=== PATIENT | female | born 1970 | race Caucasian/White ===

== ENCOUNTER 2016-09-06 14:42 | Emergency (ER) | payer BC ==
[~2016-09-06] VITALS: Ht 152.4 cm; Wt 69.0 kg
[~2016-09-06 14:42] MED LIST: ESCI10TA17 PO; OXYC-57 PO
[2016-09-06 14:44] VITALS: TEMP 36.7; Ht 152.4 cm; Wt 69.0 kg
[2016-09-06] MEDS ORDERED: MONT1TAB3 PO (15:09)
[2016-09-06] MEDS ORDERED: BUPR-83 PO (15:09)
[2016-09-06] MEDS ORDERED: MULT-506 PO (15:09)
[2016-09-06] MEDS ORDERED: ALBUAER (15:10)
[2016-09-06] MEDS ORDERED: ADVIN25/60 INH (15:10)
[2016-09-06] MEDS ORDERED: ONDANSETRON INJ 2 MG/ML 2 ML VIAL IV STA (15:43)
[2016-09-06] MEDS ORDERED: MoRPHine SULFATE 10 MG/ML CARP/VIAL IV STA (15:43)
[2016-09-06] MEDS ORDERED: SODIUM CHLORIDE 0.9% 1000ML 1,000 ML IV STA (15:43)
[2016-09-06 15:52] LABS: BASO % 0.3 %; BASO ABS # 0.03 K/uL (0-0.2); COMPLETE YES; EOS % 0.5 %; HEMATOCRIT 40.9 % (37-47); IG% 0.1 %; LYMPH % 25.6 %; LYMPH ABS # 2.84 K/uL (1.2-3.4); MEAN CORPUSCULAR HEMOGLOBIN 33.6 pg (25-34); MEAN CORPUSCULAR HGB CONC 36.2 g/dl (32-36); MONO % 7.5 %; PLATELET COUNT 245 K/uL (130-400)
[2016-09-06 15:59] LABS: BUN/CREATININE RATIO 14.3 (10-20); CALCIUM 8.7 mg/dl (8.5-10.1); CREATININE 0.75 mg/dl (0.60-1.20); POTASSIUM 3.6 mmol/L (3.5-5.1)
[2016-09-06] MEDS ORDERED: OPTIRAY 320 IV PRN (16:00)
[2016-09-06 16:13] LABS: URINE APPEARANCE CLEAR (CLEAR); URINE BILIRUBIN NEG (NEG); URINE COLOR YELLOW; URINE EPITHELIAL CELL AUTO >30 /lpf (0-5); URINE NITRITE NEG (NEG); URINE PH 7.5 (4.5-7.5); URINE SPECIFIC GRAVITY 1.024 (1.000-1.030); UROBILINOGEN NEG (NEG)
[2016-09-06 16:33] LABS: REVIEW REQ? YES
[2016-09-06 16:34] LABS: MANUAL MICROSCOPIC REQUIRED? NO
--- NOTE | 2016-09-06 16:45 | DIAGNOSTIC IMAGING REPORT ---
ABDOMINAL ULTRASOUND, RIGHT LOWER QUADRANT HISTORY: Pain ABDOMINAL PAIN. COMPARISON: None. FINDINGS: Nonvisualization of the appendix IMPRESSION: Nonvisualization of the appendix Electronically signed by: Elliot Guidry M.D. 09/06/2016 4:44 PM Dictated Date/Time: 09/06/2016 4:43 PM
[2016-09-06] MEDS ORDERED: MoRPHine SULFATE 4 MG/ML 1 ML CARP\\VIAL IV STA (18:17)
--- NOTE | 2016-09-06 18:24 | DIAGNOSTIC IMAGING REPORT ---
CT OF THE ABDOMEN AND PELVIS WITH CONTRAST CLINICAL HISTORY: Abdominal pain. Evaluate for acute appendicitis. COMPARISON STUDY: CT of the abdomen and pelvis March 06, 2010 and right lower quadrant ultrasound performed earlier today. TECHNIQUE: Following IV administration of 94 mL of Optiray-320, axial images of the abdomen and pelvis were obtained from the lung bases to the proximal femurs. Images were reviewed in the axial, sagittal, and coronal planes. IV contrast was administered without complication. Oral contrast was administered. CT DOSE: 313.24 mGy.cm FINDINGS: The liver, spleen, adrenal glands, kidneys and pancreas are normal. There is no peripancreatic or pericholecystic infiltration. There is no biliary or pancreatic ductal dilatation. There is no evidence for a bowel obstruction. There is colonic diverticulosis. There is wall thickening of the proximal sigmoid colon with mild associated inflammation. There is no free air or abscess. The appendix is normal. IMPRESSION: 1. Acute sigmoid diverticulitis. No free air or abscess. 2. Normal appendix. 3. Small amount of fluid within the pelvis. Electronically signed by: Darrell Matta M.D. 09/06/2016 6:22 PM Dictated Date/Time: 09/06/2016 6:18 PM
[2016-09-06 18:30] VITALS: BP 144/89; PULSE 72; O2SAT 97
[2016-09-06] MEDS ORDERED: HYDR-5688 PO (18:43)
[2016-09-06] MEDS ORDERED: CPR/500 PO (18:43)
[2016-09-06] MEDS ORDERED: METR-163 PO (18:43)
--- NOTE | 2016-09-07 22:46 | EMERGENCY ROOM VISIT NOTE ---
ED Visit Note First contact with patient: 14:47 Chief Complaint: Abdominal pain. History of Present Illness: Ms. Akhtar is a 46 year-old white female who ambulates into the ED complaining of right lower quadrant abdominal pain. Historically patient reports no gastrointestinal disorders and no previous abdominal surgeries. But does report she had a uterine ablation done in 2008. Patient reports last evening a proximally 14 hours before she arrived in the emergency department she was having moderate to severe diffuse abdominal pain. This continued throughout the evening and into the treer hours and then slowly decreasing in intensity. She then elected to try to have something to eat and her pain restarted and became severe. She went to a local urgent care center and was found to have right lower quadrant abdominal pain and was sent to the ED for further evaluation and care. Currently she describes her pain as a sharp sensation. Her pain is nonradiating. She rates her discomfort 7/10. Her pain worsens with palpation of the right lower quadrant. She has not identified any alleviating factors related to the pain. She has not taken any medications for pain prior to arrival at the hospital. Associated with her pain she's been nauseated but has not vomited. Patient denies fevers, chills, sweats, skin eruptions, skin color changes, upper respiratory tract symptoms, shortness of breath, chest pain, nausea, vomiting, diarrhea, constipation, rectal bleeding, black/tarry stools, urinary symptoms, hematuria, vaginal bleeding, vaginal discharge, back/flank pain. Review of Systems: As noted above in history of present illness. All body systems were reviewed and found to be negative as noted above. Past Medical History: Asthma, bronchitis, pneumonia, unspecified urinary problems. Current Medications: Wellbutrin, Singulair, albuterol, Advair and multivitamins. Allergies to Medications: Patient denies. Social History: Patient is currently employed; she feel safe in her home environment; she denies tobacco and admits to alcohol use. Physical Examination: Vital Signs: Date Time Temp Pulse Resp B/P Pulse Ox O2 Delivery O2 Flow Rate FiO2 09/06/16 18:30 72 144/89 97 09/06/16 18:00 159/90 09/06/16 17:44 71 16 97 09/06/16 17:39 139/90 09/06/16 17:35 70 98 4/5/17 17:05 72 20 97 09/06/16 17:00 152/97 09/06/16 16:00 76 166/96 96 09/06/16 15:59 68 09/06/16 15:56 144/94 09/06/16 14:44 36.7 79 18 153/99 96 Room Air GENERAL: 46-year-old female in mild to moderate distress due to pain, nontoxic- appearing, afebrile and hemodynamically stable. NEUROLOGICAL: Awake, alert and oriented to person, place and time. Answering questions appropriately and following commands. Normal gait. Good hand eye coordination. SKIN: Warm, dry and pink. No soft tissue eruptions or trauma noted. HEENT: Atraumatic and normocephalic. PERRLA. Sclera white and conjunctiva pink. Oral cavity moist and pink. Pharynx is nonerythematous or edematous. Speech normal. No lymphadenopathy. Trachea midline. No jugular venous distention. BACK: No tenderness over the bony spine. No CVA tenderness. THORAX: Lungs sounds are clear to auscultation and equal bilaterally with symmetrical chest wall. No wheezing, rales or rhonchi. No crepitus, tenderness , subcutaneous air or deformities noted. HEART: Regular rate and rhythm. No gallops, rubs or murmurs are appreciated. ABDOMEN: Flat and soft with mild tenderness in left lower quadrant referring pain to the right side of the abdomen and moderate tenderness just inferior to McBurney's point. Positive bowel sounds in all quadrants. No guarding, rigidity or organomegaly. EXTREMITIES: Moves all extremities well on command and with purpose. All distal neurovascular statuses are intact and equal bilaterally. ED Course: Patient is assessed as noted above. Laboratory Testing: Test 09/06/16 15:15 Range/Units White Blood Count 11.10 4.8-10.8 K/uL Red Blood Count 4.40 4.2-5.4 M/uL Hemoglobin 14.8 12.0-16.0 g/dL Hematocrit 40.9 37-47 % Mean Corpuscular Volume 93.0 80-100 fL Mean Corpuscular Hemoglobin 33.6 25-34 pg Mean Corpuscular Hemoglobin Concent 36.2 32-36 g/dl Platelet Count 245 130-400 K/uL Mean Platelet Volume 9.0 7.4-10.4 fL Neutrophils (%) (Auto) 66.0 % Lymphocytes (%) (Auto) 25.6 % Monocytes (%) (Auto) 7.5 % Eosinophils (%) (Auto) 0.5 % Basophils (%) (Auto) 0.3 % Neutrophils # (Auto) 7.33 1.4-6.5 K/uL Lymphocytes # (Auto) 2.84 1.2-3.4 K/uL Monocytes # (Auto) 0.83 0.11-0.59 K/uL Eosinophils # (Auto) 0.06 0-0.5 K/uL Basophils # (Auto) 0.03 0-0.2 K/uL RDW Standard Deviation 42.9 36.4-46.3 fL RDW Coefficient of Variation 12.6 11.5-14.5 % Immature Granulocyte % (Auto) 0.1 % Immature Granulocyte # (Auto) 0.01 0.00-0.02 K/uL Urine Color YELLOW Urine Appearance CLEAR CLEAR Urine pH 7.5 4.5-7.5 Urine Specific [place] 1.024 1.000-1.030 Urine Protein NEG NEG Urine Glucose (UA) NEG NEG Urine Ketones NEG NEG Urine Occult Blood TRACE NEG Urine Nitrite NEG NEG Urine Bilirubin NEG NEG Urine Urobilinogen NEG NEG Urine Leukocyte Esterase NEG NEG Urine WBC (Auto) 1-5 0-5 /hpf Urine RBC (Auto) 0-4 0-4 /hpf Urine Hyaline Casts (Auto) 1-5 0-5 /lpf Urine Epithelial Cells (Auto) >30 0-5 /lpf Urine Bacteria (Auto) 1+ NEG Urine Renal Epithelial Cells 0-5 /lpf Sodium Level 142 136-145 mmol/L Potassium Level 3.6 3.5-5.1 mmol/L Chloride Level 107 98-107 mmol/L Carbon Dioxide Level 29 21-32 mmol/L Anion Gap 6.0 3-11 mmol/L Blood Urea Nitrogen 11 7-18 mg/dl Creatinine 0.75 0.60-1.20 mg/dl Est Creatinine Clear Calc Drug Dose 80.4 ml/min Estimated GFR () 110.0 Estimated GFR (Non- 94.9 BUN/Creatinine Ratio 14.3 10-20 Random Glucose 80 70-99 mg/dl Calcium Level 8.7 8.5-10.1 mg/dl Total Bilirubin 0.5 0.2-1 mg/dl Direct Bilirubin 0.1 0-0.2 mg/dl Aspartate Amino Transf (AST/SGOT) 18 15-37 U/L Alanine Aminotransferase (ALT/SGPT) 29 12-78 U/L Alkaline Phosphatase 58 45-117 U/L Total Protein 7.1 6.4-8.2 gm/dl Albumin 3.7 3.4-5.0 gm/dl Lipase 120 73-393 U/L Right Lower Quadrant Ultrasound: Was reviewed by myself and read by the radiologist showing a nonvisualized appendix. Contrast Abdominal/Pelvic CT: Was reviewed by myself and read by the radiologist and shows acute sigmoid diverticulitis without free air or abscess. Normal. Appendix. Small amount of fluid in the pelvis. Patient was hydrated with normal saline and she received a total of 10 mg of morphine IV for pain and 4 mg of Zofran IV for nausea. Patient was reassessed multiple times during her stay in the emergency department. Patient's case was reviewed with Dr. Alford; we agreed on diagnostic approach, treatment, disposition and plan. Patient was educated about kobeight's findings and instructed on her treatment plan; she verbalizes understanding and agreement with this plan. Clinical Impression: Acute diverticulitis. Decision-Making: Initially my differential diagnosis I considered acute appendicitis, acute diverticulitis, bowel obstruction, perforated viscus, pancreatitis, hepatitis, constipation and other causes. Disposition: Patient discharged home in stable condition accompanied by female friends; prior to departure she was reassessed and subjectively reported she was feeling better and rated her discomfort 3/10. Plan: Patient was placed on a sliding pain scale of ibuprofen, acetaminophen and [place] ; appropriate precautions were discussed with the patient concerning narcotic use. Patient was prescribed 500 mg of ciprofloxacin 2 times a day and 500 mg of Flagyl 3 times a day for 10 days. Patient was encouraged to call her family physician tomorrow morning and inform them of today's ED visit and request follow-up care and treatment and eventually referral to gastroenterology. Patient was encouraged return the ED for uncontrolled pain, fevers, bloody stools or any new/concerning symptoms.
== END 2016-09-06 18:53 | disposition home or self-care (01) ==
LOC: C.EDB 14:43 → C.EDA 18:53
DX: K57.32 Diverticulitis of large intestine without perforation or abscess without bleeding (principal); J45.909 Unspecified asthma, uncomplicated; Z87.01 Personal history of pneumonia (recurrent); Z98.890 Other specified postprocedural states

== ENCOUNTER → 2017-03-23 | Outpatient (CLI) | payer BC ==
[~2017-03-23] MED LIST changes: +ADVIN25/60 INH; +ALBUAER; +BUPR-83 PO; +CPR/500 PO; -ESCI10TA17 PO; +MONT1TAB3 PO; +MULT-506 PO; -OXYC-57 PO
--- NOTE | 2017-03-23 15:52 | MAMMOGRAPHY REPORT ---
BILATERAL DIGITAL SCREENING MAMMOGRAM TOMOSYNTHESIS WITH CAD: 03/23/2017 CLINICAL HISTORY: Routine screening. Patient has no complaints. TECHNIQUE: Breast tomosynthesis in addition to standard 2D mammography was performed. Current study was also evaluated with a Computer Aided Detection (CAD) system. COMPARISON: Comparison is made to exams dated: 03/17/2016 mammogram, 10/07/2015 mammogram, 03/15/2015 mammogram, 01/23/2014 mammogram, 01/21/2013 mammogram, and 07/18/2012 ultrasound - [facility]. BREAST COMPOSITION: The tissue of both breasts is heterogeneously dense, which may obscure small mas ses. FINDINGS: No suspicious masses, calcifications, or areas of architectural distortion are noted in ei ther breast. There has been no significant interval change compared to prior exams. A biopsy marker clip is again noted in the right breast. Bilateral benign-appearing calcifications are not significa ntly changed. Bilateral asymmetries are stable. IMPRESSION: ACR BI-RADS CATEGORY 2: BENIGN There is no mammographic evidence of malignancy. A 1 year screening mammogram is recommended. The pa tient will receive written notification of the results. Approximately 10% of breast cancers are not detected with mammography. A negative mammographic report should not delay biopsy if a clinically suggestive mass is present. Muriel Harris M.D. /:03/23/2017 14:39:31 [employer] Work [employer] Installer: Parris Johnston, [facility] letter sent: Normal 1/2 BI-RADS Code: ACR BI-RADS Category 2: Benign
== END | disposition home or self-care (01) ==
LOC: C.MAMM 13:15
PROVIDERS: ATTEND Obstetrics & Gynecology
DX: Z12.31 Encounter for screening mammogram for malignant neoplasm of breast (principal)

== ENCOUNTER → 2017-09-26 | Outpatient (CLI) | payer BC, OTHER | END | disposition home or self-care (01) | LOC: C.RDSM 09:00 | PROVIDERS: ATTEND Podiatrist | DX: M79.671 Pain in right foot (principal) ==

== ENCOUNTER 2019-10-23 07:11 | Inpatient (IN) ==
--- NOTE | 2019-08-29 09:35 | Anesthesiology Consultation ---
Date of Service August 29, 2019 Assessment & Plan (1) Encounter for pre-operative examination: - PCP Clearance 07/2019 = "Umaña score 0.1% complication class I. May proceed with surgery. Low risk." - S/P ACDF C5-C7: 12/10/17: Grade view 1, MAC#3, ETT 7.0 at [facility] - Check test AM DOS - Hx PONV: scope patch ordered for AM DOS - Patient anxious RE: surgery/SAB. Requests heavier sedation if possible. Chart Review Chart Review: Acceptable Risk for Surgery (pending preop labs) and Patient NOT seen in Pre Admission Testing History Surgery Operation Date: 10/23/19 07:15 Proposed Procedures p Left Total Knee Arthroplasty - Santos Sosa MD Height/Weight Height: 5 ft 5 in Weight: 61.235 kg Allergies Allergy/AdvReac Type Severity Reaction Status Date / Time No Known Allergies Allergy Verified 07/23/19 10:56 Medications Home Medications Medication Instructions Recorded Confirmed Last Taken bupropion HCl 300 mg PO QAM 05/07/19 08/29/19 05/07/19 hydrochlorothiazide 25 mg PO QAM 05/07/19 08/29/19 05/07/19 lisinopril 10 mg PO QAM 05/07/19 08/29/19 05/07/19 escitalopram oxalate [Lexapro] 5 mg PO QAM 07/23/19 08/29/19 Unknown ibuprofen 800 mg PO Q6H PRN 07/23/19 08/29/19 Unknown meloxicam 15 mg tablet 15 mg PO DAILY PRN #30 tab 08/19/19 08/29/19 Unknown methylprednisolone 4 mg tablets in 4 mg PO UD #1 pkt 08/19/19 08/29/19 Unknown a dose pack Past Medical History Medical History Anxiety Asthma exercised induced, no issue x years Cervical stenosis of spinal canal prescribed methyprednisolone pack + meloxicam at 08/19/19 ortho visit Depression Diverticular disease Hypertension Osteoarthritis Past Family History Family History Mother Family history of diabetes mellitus Father Family history of diabetes mellitus Grandfather (Maternal) Family history of diabetes mellitus Grandfather (Paternal) Family history of diabetes mellitus Grandmother (Paternal) Family history of diabetes mellitus Grandmother (Maternal) Family history of diabetes mellitus Past Surgical History Surgical History History of arthroscopy LEFT X 2 History of colonoscopy Hx of hand surgery RIGHT TRIGGER FINGER S/P cervical spinal fusion ACDF C5-C7: 12/10/17: Grade view 1, MAC#3, ETT 7.0 at [facility] Social History Smoking Status: Former smoker Do You Dip or Chew Tobacco: No Smoking End Date: 2009 Hx Alcohol Use: Yes Alcohol type: wine alcohol intake frequency: a few times a month Hx Substance Use: No Testing Electrocardiogram Date: 07/30/19 Findings: + NSR @ (60)
--- NOTE | 2019-10-17 14:45 | History & Physical Report ---
Date of Service October 17, 2019 Assessment & Plan (1) Osteoarthritis of left knee: Plan: The patient is scheduled to undergo this procedure with Dr. Santos Sosa at [facility] as an inpatient on October 23, 2019. Risks and complications of the procedure such as infection, bleeding, pain, scar, nerve and blood vessel damage, weakness, wound problems, stiffness, incomplete relief of symptoms, hardware failure, hardware loosening or fracture, tender or ligament injury, blood clots, embolism, heart attack, stroke, and were explained to the patient by Dr. Sosa at her visit today. Informed consent to perform the procedure was obtained. We have already obtained preoperative medical clearance from the patient's primary care provider's office. This was done by MARCI Romo. Due to timing, patient needs and updated CBC with diff, CMP, PT/INR, blood type and screen, urinalysis, urine culture, hemoglobin A1c, and a nasal culture for MRSA. Patient will obtain these labs at [facility] upstairs after her visit today. Her EKG is valid. She patient is scheduled for her 2-week postop followup with myself on November 07, 2019 @ 1:00 in the afternoon. I advised her that I will prescribe her with narcotic pain medication and anti-inflammatory upon discharge from the hospital. She has a walker that she will bring with her on the day of the procedure. She states she will most likely do in-home therapy for 1 week and then transition to outpatient therapy at our PT Clinic. We discussed discharge planning, went over the total knee arthroplasty packet. I provided her with a paperwork to obtain a handicap placard for her vehicle at her initial preop in July that is valid for 4-6 months postoperatively. She states that she has already attended the lectures offered by [facility] in regard to knee replacement surgery. She understands that she will need to use antibiotics for any type of dental procedure after the total knee replacements. I also discussed the high probability that she will need revision in the future due to her age. The patient verbalized understanding of all information provided during today's visit, thanks us for the care she has received, and states if she has questions or concerns that should arise prior to her procedure day, she will contact the clinic accordingly. History of Present Illness Chief Complaint: Left knee pain Primary Care Provider: Elise Lozano PRE-OP Diagnosis: Left knee osteoarthritis Planned Procedure: Left total knee arthroplasty History of Present Illness (including history relevant to procedure): This 49-year-old female presents to the clinic today for her preoperative history and physical examination. Patient was initially scheduled for this procedure in early August but it was canceled due to the COVID-19 pandemic. The patient complains of a longstanding history of left knee pain that developed after her initial knee surgery at age 12. She states that she has had 3 arthroscopic knee surgeries in the past and since this past April has experienced significant knee pain after running a half marathon. The patient states that she has failed conservative treatment with injections, use of nonsteroidal agents, and physical therapy, as well as her 3 previous knee surgeries. The patient elects to proc eed with a total knee arthroplasty because the pain is affecting her activities of daily living. Past Medical History: Problems: Osteoarthritis of left knee Pre-op exam Hypertension Acute sinusitis Rectal bleeding Lower abdominal pain Sebaceous cyst Subconjunctival hemorrhage Acute diverticulitis Skin lesion Weight disorder Bronchospasm, exercise-induced Adjustment disorder with mixed emotional features Abnormal mammogram of right breast Depressive disorder Anxiety state Decreased hearing Body mass index 25-29 - overweight Dyspnea Procedure History Procedure Procedure Date Comments Repair of knee joint - x2 Ablation Uterine Trigger finger Punch biopsy of skin 07/04/2019 Mammogram 04/02/2019 - No mammographic evidence of malignancy Ablation 09/30/2018 - negative for intraepithelial lesion or malignancy. CT of abdomen and pelvis 08/27/2018 - 1. CT findings indicative of acute sigmoid diverticulitis. No evidence of peridiverticular abscess 2. No evidence of bowel obstruction. no evidence of free air.3. 34 mm right adnexal cyst likely ovarian. Screening mammogram of right breast 03/29/2018 - Impression: There is no mammographic evidence of malignancy. A 1 year screening mammogram is recommended. (03/30/2019). The patient will receive written notification of the results. Cervical discectomy anterior bilateral foraminotomies C5-6, C6-7 12/10/2017 Chest x-ray 11/15/2017 - Impression: No acute process. Removed bone spur left shoulder and removed some bursitis 2017 Colonoscopy 10/27/2016 - -Diverticulosis in the sigmoid colon-no specimens collected CT of abdomen and pelvis 09/06/2016 - Acute sigmoid diverticulitis. No free air or abscess.Normal appendixSmall amount of fluid within the pelvis. Ultrasound scan of lower abdomen 09/06/2016 - Nonvisualization of the appendix. Excision 04/25/2016 - right anterior neck Mammogram 03/17/2016 - Cat 2- benign Echocardiogram 11/11/2015 - Normal LV size and systolic function with no regional wall motion abnormalities. Ejection fraction 60%. No left ventricular hypertrophy. Normal LV diastolic function. Normal E/e' ration. A complete report is available with the images in Centricity and is also available in Powerchart. Chest x-ray 11/03/2015 - Negative chest x-ray Mammogram, Right diagnostic 10/07/2015 - Impression: Hypoechoic 6 mm mass in the right breast at 7:00 is stable: this was recent biopsied and yielded benign pathology. Other small benign cysts are seen within the right breast ultrasound. There is no mammographic or targeted sonographic evidence of malignancy. Return to annual mammogram screening schedule is recommended, due March 2016. The patient has been verbally notified of the results. CXR - Chest X-ray 08/03/2015 - Negative chest Mammogram 04/03/2015 - unilat of right breastu/s guided bx Biopsy 04/03/2015 - S/P U/S guided core bx of a sonographically identified solid mass int the 7:00 right breast, with bx marker placement. Mammogram 03/19/2015 - CAT 4B- intermediate suspicion for malignancy, targeted u/s. Mammogram 03/15/2015 - CAT 0- incopmplete PAP test date 09/11/2014 - Negative for intraepithelial lesion or malignancy Mammogram 01/23/2014 Allergies and Sensitivities: NKA FAMILY HISTORY: Positive for heart attack, hypertension, muscular dystrophy, and type 2 diabetes. SOCIAL HISTORY: The patient consumes 1 alcoholic beverage per week and states she quit smoking cigarettes 10 years ago. She denies any illicit drug use. Current Home Meds: (Last Updated 10/16 13:16) (buPROPion 300 mg/24 hours (XL) oral tablet, extended release) 300 mg PO Daily(Lexapro 5 mg oral tablet) 5 mg PO Daily(hydroCHLOROthiazide 25 mg oral tablet) TAKE 1 TABLET BY MOUTH EVERY DAY(lisinopril 10 mg oral tablet) TAKE 1 TABLET BY MOUTH EVERY DAY(meloxicam 15 mg oral tablet) 15 mg PO Daily Physical Exam: (relevant to the procedure, including heart and lung evaluation) Skin: The patient's skin is normal in appearance. No open skin lesions or discharge. Eyes: Pupils are equal and reactive to light and accommodating. Extraocular movements are intact. Throat: Posterior oropharynx clear with absence of edema, erythema, exudate. Cardiovascular: The patient has a regular rate and rhythm with no murmurs or gallops appreciated. Lungs: Auscultation of lung marie reveals clear breath sounds throughout. No wheezing, rales, or rhonchi. Abdomen: Nonobese, nondistended, nontender with normoactive bowel sounds. Extremities: Left knee range of motion is limited to 5 degrees of extension and 130 degrees of flexion. She has tenderness over the medial and lateral joint spaces when the knee is placed in the flexed position. The patient has no edema, erythema, ecchymosis, warmth, or palpable bony deformity. No varus or valgus laxity. Negative drawer sign. Negative Abdifatah test. Her patella is difficult to manipulate due to arthritic changes within the patellofemoral joint. Otherwise, her calf is soft, supple, nontender to palpation. She is neurovascularly intact in the left lower extremity. Neurological: Cranial nerves 2 through 12 are intact. No motor or sensory deficits. Psychological/General: The patient is alert and oriented x3 with proper grooming and hygiene. Allergies Allergy/AdvReac Type Severity Reaction Status Date / Time No Known Allergies Allergy Verified 07/23/19 10:56 Home Medications Home Medications Medication Instructions Recorded Confirmed Type bupropion HCl 300 mg PO QAM 05/07/19 08/29/19 History hydrochlorothiazide 25 mg PO QAM 05/07/19 08/29/19 History lisinopril 10 mg PO QAM 05/07/19 08/29/19 History escitalopram oxalate [Lexapro] 5 mg PO QAM 07/23/19 08/29/19 History ibuprofen 800 mg PO Q6H PRN 07/23/19 08/29/19 History meloxicam 15 mg tablet 15 mg PO DAILY PRN #30 tab 08/19/19 08/29/19 Rx methylprednisolone 4 mg tablets in 4 mg PO UD #1 pkt 08/19/19 08/29/19 Rx a dose pack Past Med/Surg History Medical History Anxiety Asthma exercised induced, no issue x years Cervical stenosis of spinal canal prescribed methyprednisolone pack + meloxicam at 08/19/19 ortho visit Depression Diverticular disease Hypertension Osteoarthritis Surgical History History of arthroscopy LEFT X 2 History of colonoscopy Hx of hand surgery RIGHT TRIGGER FINGER S/P cervical spinal fusion ACDF C5-C7: 12/10/17: Grade view 1, MAC#3, ETT 7.0 at [facility] Family History Mother Family history of diabetes mellitus Father Family history of diabetes mellitus Grandfather (Maternal) Family history of diabetes mellitus Grandfather (Paternal) Family history of diabetes mellitus Grandmother (Paternal) Family history of diabetes mellitus Grandmother (Maternal) Family history of diabetes mellitus Social History Preferred Language: [place] Communication Ability: Effective Engineering Technical Analyst Required: No Beliefs That Will Affect Care: None Current Living Situation: Spouse Other Information That Helps Us Care for You: No Feels Safe at Home: Yes Safety Concerns: Feels Safe At This Time Smoking Status: Former smoker Do You Dip or Chew Tobacco: No ; Smoking End Date: 2009 ; Second Hand Exposure: Yes (FATHER SMOKED) ; Tobacco Cessation Educ ation Requested by Patient: No Hx Alcohol Use: Yes Alcohol type: wine Hx Substance Use: No Review of Systems All systems reviewed & are unremarkable except as noted in HPI & below Physical Exam Physical Exam: Physical Exam: (relevant to the procedure, including heart and lung evaluation) Skin: The patient's skin is normal in appearance. No open skin lesions or discharge. Eyes: Pupils are equal and reactive to light and accommodating. Extraocular movements are intact. Throat: Posterior oropharynx clear with absence of edema, erythema, exudate. Cardiovascular: The patient has a regular rate and rhythm with no murmurs or gallops appreciated. Lungs: Auscultation of lung marie reveals clear breath sounds throughout. No wheezing, rales, or rhonchi. Abdomen: Nonobese, nondistended, nontender with normoactive bowel sounds. Extremities: Left knee range of motion is limited to 5 degrees of extension and 130 degrees of flexion. She has tenderness over the medial and lateral joint spaces when the knee is placed in the flexed position. The patient has no edema, erythema, ecchymosis, warmth, or palpable bony deformity. No varus or valgus laxity. Negative drawer sign. Negative Abdifatah test. Her patella is difficult to manipulate due to arthritic changes within the patellofemoral joint. Otherwise, her calf is soft, supple, nontender to palpation. She is neurovascularly intact in the left lower extremity. Neurological: Cranial nerves 2 through 12 are intact. No motor or sensory deficits. Psychological/General: The patient is alert and oriented x3 with proper grooming and hygiene.
--- NOTE | 2019-10-21 11:26 | Communication Note ---
Date of Service: October 21, 2019 Travel assessment/history reviewed - low risk at this time - will be reviewed the morning of surgery. Routine preop covid testing completed 10/17/2019, results currently pending.
[~2019-10-23 07:11] MED LIST changes: +ACETAMINOPHEN 500 MG TAB PO SCH; -ADVIN25/60 INH; -ALBUAER; +BUPIVACAINE 0.25% 30 ML VIAL ONE; +BUPIVACAINE 0.5 % 5 MG/1 ML MPF 30ML VIAL ONE; +BUPIVACAINE 0.5 % 5 MG/1 ML PF 10ML VIAL ONE; -BUPR-83 PO; +CEFAZOLIN 2000MG 2,000 MG/15 ML SYR IV SCH; -CPR/500 PO; +CeleBREX 200 MG CAP PO SCH; +FAMOTIDINE 20 MG TAB PO SCH; +LR 500ML BOLUS, THEN 15ML/HR IV SCH; +LR 60ML/HR IV SCH; +METOCLOPRAMIDE HCL 10 MG TABLET PO SCH; -MONT1TAB3 PO; -MULT-506 PO; +ROPIVACAINE 0.5% HCL/PF 150 MG, BUPIVACAINE 0.5% MPF 30 ML, EPINEPHrine 0.15 MG, Ketoro... INFIL SCH; +SCOPOLAMINE 1.5 MG TDSY TD SCH; +TRAMADOL HCL 50 MG TABLET PO SCH; +TRANEXAMIC ACID 1,000 MG **IV Intra-op IV SCH; +TRANEXAMIC ACID 1,000 MG **IV Pre-op IV SCH; +dexAMETHasone 4 MG TAB PO SCH
[2019-10-23] MEDS ORDERED: fentaNYL citrate 100 MCG/2 ML VIAL ONE (07:29)
[2019-10-23] MEDS ORDERED: MIDAZOLAM HCL 1 MG/ML 2ML VIAL ONE (07:30)
--- NOTE | 2019-10-23 08:44 | History & Physical Bridge Note ---
Date of Service October 23, 2019 History & Physical Bridge Note I have examined the patient, reviewed the History & Physical and in the interval since the performance of the History & Physical I have noted the following changes of clinical significance: no changes noted
[2019-10-23] MEDS ORDERED: ePHEDrine sulfate 50 MG/ML AMP IV PRN (08:47)
[2019-10-23] MEDS ORDERED: ATROPINE SULFATE 0.1 MG/ML 10ML SYR IV PRN (08:47)
[2019-10-23] MEDS ORDERED: ORTHO JOINT ANESTHETIC ONE (08:59)
[2019-10-23] MEDS ORDERED: LIDOCAINE HCL 2% 2 ML VIAL/AMP(20MG/ML) INFIL ONE (09:37)
[2019-10-23] MEDS ORDERED: PROPOFOL IV EMULSION 10 MG/ML 20 ML VIAL IV ONE (09:37)
[2019-10-23] MEDS ORDERED: ONDANSETRON INJ 2 MG/ML 2 ML VIAL ONE (09:37)
[2019-10-23] MEDS ORDERED: MAGNESIUM HYDROXIDE SUSP 30 ML UDC PO PRN (11:27)
[2019-10-23] MEDS ORDERED: ALUMINUM/MAGNESIUM SUSP 30 ML UDC PO PRN (11:27)
[2019-10-23] MEDS ORDERED: NALOXONE HCL 0.4 MG/1 ML VIAL/CARP IV PRN (11:27)
[2019-10-23] MEDS ORDERED: METOCLOPRAMIDE HCL INJ 5 MG/ML 2 ML VIAL IV PRN (11:27)
[2019-10-23] MEDS ORDERED: bisacodyL 10 MG SUPP PR PRN (11:27)
[2019-10-23] MEDS ORDERED: ONDANSETRON INJ 2 MG/ML 2 ML VIAL IV PRN (11:27)
[2019-10-23] MEDS ORDERED: DiphenhydrAMINE HCL 50 MG/ML VIAL IV PRN (11:27)
--- NOTE | 2019-10-23 11:27 | Operative Report ---
Post Operative Report Pre & Post Diagnosis Operation Date: 10/23/19 07:00 <No data on this case meets the specified criteria> Operation Date: 10/23/19 09:00 Pre-Op Diagnosis: Left Knee Osteoarthritis Post-Op Diagnosis: Left Knee Osteoarthritis I identified the patient and participated in the time-out.: Yes Procedure Operation Date: 10/23/19 07:00 <No data on this case meets the specified criteria> Operation Date: 10/23/19 09:00 Actual Procedures p Left Total Knee Arthroplasty(Left) - Santos Sosa MD Surgeon Santos Sosa MD Health Information Internship Monica Montilla PA-C Estimated Blood Loss 100 Findings Consistent with Post-Op Diagnosis Specimens none Complications none Disposition Accompanied Patient To Recovery: Yes Disposition: Recovery Room Description of Procedure I was present during the entire case assisting with retraction, wound closure and dressing application. Please see Dr. Sosa procedure note for specifics of the case. I attest to the content of the Intraoperative Record and any orders documented therein. Any exceptions are noted below.
[2019-10-23] MEDS ORDERED: SODIUM CHLORIDE 0.9% 1000ML 1,000 ML IV SCH (11:30)
--- NOTE | 2019-10-23 11:43 | Operative Report ---
Post Operative Report Pre & Post Diagnosis Operation Date: 10/23/19 07:00 <No data on this case meets the specified criteria> Operation Date: 10/23/19 09:00 Pre-Op Diagnosis: Left Knee Osteoarthritis Post-Op Diagnosis: Left Knee Osteoarthritis I identified the patient and participated in the time-out.: Yes Procedure Operation Date: 10/23/19 07:00 <No data on this case meets the specified criteria> Operation Date: 10/23/19 09:00 Actual Procedures p Left Total Knee Arthroplasty(Left) - Santos Sosa MD Surgeon Santos Sosa MD Lead Sales Consultant KASH Montilla PA-C Estimated Blood Loss 100 Findings Consistent with Post-Op Diagnosis Fluids 1600 Specimens Bone and soft tissue contents from the knee Anesthesia Type Spinal MAC Complications none Disposition Accompanied Patient To Recovery: No Disposition: Recovery Room Indications 49-year-old female with left knee osteoarthritis is been refractory to non- surgical management. X-rays demonstrate [id number] arthritis in the lateral compartment. She is previously had a lateral meniscectomy when she was a teenager. I had a long discussion with her about the risks and benefits of surgery alternatives to surgery and expected outcomes. After reviewing all these she elected to proceed with surgery. All questions were answered. Informed consent was signed. Description of Procedure Patient was identified in the preoperative holding area where the surgical site was marked. Patient was brought back to the operating room, placed on the operating room table, and IV sedation was administered. All bony prominences were padded. Perioperative antibiotics and tranexamic acid were administered. Patient was prepped and draped in the normal sterile fashion. Prior to incision a multidisciplinary timeout was called. All in the room were in agreement. We began by exsanguinating the limb with an Esmarch bandage. Tourniquet was inflated 250 mmHg. 14 cm long incision was made over the anterior aspect of the knee. I dissected through the subcutaneous tissues to the level of the fascia. Full-thickness flaps are raised above the fascia. A median parapatellar arthrotomy was then created. Half the fat pad was excised. A medial release was performed with Bovie electrocautery. Synovitis in the suprapatellar pouch was removed. The patella was then everted and held with 2 towel clips. The thickness of the patella was measured at 24 mm. Patellar resection was performed. Caliper showed the patella thickness now to be 15 mm. A size 35 trial was placed and had a great fit. The 3 drill holes were placed then the trial button was placed. This was resized and came back at 23 mm which I was very happy with. The patellar trial was then removed, the patella was everted and the knee was flexed up. Osteophytes were removed from the femoral condyles and intercondylar notch. The ACL and PCL were excised. Intramedullary drill guide was drilled into the femur. Distal femoral cutting guide was placed set at 5 degrees of valgus to resect 11 mm off the distal femur. Distal femoral resection was made without difficulty. The tibia was then exposed. The lateral meniscus was sharply excised. The tibial cutting jig was set 2 clicks medial at the ankle and to resect 10 mm off the less involved compartment. The jig was then pinned in position and the tibial cut was made. We then brought the knee into full extension. Lamina spreaders were placed. The medial meniscus was excised. The extension block was then placed for 8 mm thickness poly. This gave us full extension and excellent stability to varus and valgus. Next the knee was flexed up and the femoral sizing guide was placed. The patient sized to a size 3 femur. The 3 degree external rotation jig was used to create 2 holes in the distal femur. The jig was removed and the holes were compared to Whitesides axis and the epicondylar axis. We were happy with the rotation, and therefore placed a size three 4-in-1 cutting jig and pinned this into position. Our 4 cuts were made. The cutting jig was removed. The flexion block was then placed with the knee held at 90 degrees. There was excellent stability to varus and valgus at 90 degrees with no gapping medially or laterally. Next the box cutting jig was placed on the distal femur. The box cut was made and the femoral trial was impacted into position. The tibia was sized to a 2- 1/2 for a fixed bearing component. The tibial tray was positioned in external rotation on the cut tibial surface and the knee was brought through a full range of motion. We then pinned the tibial tray into position and used the intramedullary drill followed by the keel punch. The trial polyethylene was then placed and the knee was brought through a full range of motion. I was very happy with the stability through a full range of motion. Next the trial components were removed. A posterior capsular release was performed off the distal femur. I then injected the posterior capsule and periosteum with the periarticular injection cocktail. The bone cuts were then irrigated and dried while the cement was mixed on the back table. The femoral component was cemented on first. Excess cement was removed. A lap sponge was placed over the femoral component for protection, then the tibia was subluxated anteriorly. The tibial component was then cemented in place. Again excess cement was removed. The trial polyethylene was then placed and the knee was bro ught into full extension and held there until the cement cured. The patella was cemented and clamped. Dilute Betadine solution was then allowed to irrigate the knee while the cement cured. Once the cement was fully cured, the tourniquet was let down and meticulous hemostasis was ensured. The wound was irrigated out with copious amounts normal saline. The knee was brought through a full range of motion and we are very happy with the patella tracking and the stability. Therefore, the trial tibial polyethylene was removed and the real size 2-1/2 polyethylene 8 mm thickness was placed. We then began to close. 0 Vicryl was used to repair the patellar retinaculum in [id number] fashion. The quadriceps and patellar tendons were run with the #1 Ethibond. The deep dermal layer was closed with running 2-0 Vicryl. Zip line was used for the skin. A compressive dressing was placed. Patient's sedation was lifted and was transferred to recovery room in stable condition. Postoperative course: Patient will be admitted to the floor for pain control and monitoring. Weightbearing as tolerated with no knee range of motion for 48 hours. Aspirin for DVT prophylaxis. I attest to the content of the Intraoperative Record and any orders documented therein. Any exceptions are noted below.
--- NOTE | 2019-10-23 12:00 | XRay Report ---
XR knee LT 1 or 2V routine CLINICAL HISTORY: Surgical Post Op COMPARISON: Left knee radiographs July 30, 2019. FINDINGS: Alignment of the total left knee arthroplasty is anatomic. Hardware is intact. There is no fracture. A few punctate radiodensities project over the subcutaneous tissues of the anterior left l eft knee. IMPRESSION: 1. Status post total left knee arthroplasty. No periprosthetic fracture. 2. Two punctate indeterminate punctate metallic densities which project over the subcutaneous tissues of the anterior left knee, on lateral projection. ACT 112: Negative or not required by law. Electronically signed by: Darrell Matta M.D. 10/23/2019 11:59 AM
--- NOTE | 2019-10-23 12:16 | Anesthesiology Progress Note ---
Date of Service October 23, 2019 Anesthesia Post Procedure Vital Signs Vital Signs: Temp Pulse Pulse Resp BP BP Pulse Ox 10/23/19 12:05 36.6 C 61 16 113/64 99 10/23/19 11:55 66 16 118/66 98 10/23/19 11:45 36.6 C 69 16 113/66 99 10/23/19 11:35 65 16 114/66 95 10/23/19 11:26 36.4 C L 69 16 111/71 97 10/23/19 07:44 36.9 C 77 16 139/92 99 Transfer of Care Handoff Completed per policy Notes Mental Status: alert / awake / arousable and participated in evaluation Nausea / Vomiting: adequately controlled Pain: adequately controlled Airway Patency, RR, SpO2: stable & adequate BP & HR: stable & adequate Hydration State: stable & adequate Neuraxial Anesthesia: was administered and sensory block is resolving Anesthetic Complications: no major complications apparent and Pt Satisfied with anesthetic care
[2019-10-23] MEDS: KETOROLAC TROMETHAMINE 15 MG/ML VIAL IV SCH ×3 (12:49→23:43)
[2019-10-23] MEDS: ACETAMINOPHEN 500 MG TAB PO SCH ×2 (14:11→21:58)
[2019-10-23] MEDS: CHECK SCOPOLAMINE PATCH PLACEMENT SCH ×2 (17:07→23:43)
[2019-10-23] MEDS ORDERED: TRANEXAMIC ACID / 0.7% NACL 1,000 MG/100 ML BAG IV SCH (17:30)
[2019-10-23] MEDS: CEFAZOLIN 2000MG 2,000 MG/15 ML SYR IV SCH (18:00)
[2019-10-23] MEDS: OXYCODONE HCL IR 5 MG TAB (IMMEDIATE RELEASE) PO PRN ×2 (18:00→21:58)
[2019-10-23] MEDS: ASPIRIN 81 MG ECTAB PO SCH (20:15)
[2019-10-23] MEDS: DOCUSATE SODIUM 100 MG CAP PO SCH (20:15)
[2019-10-23] MEDS ORDERED: SENNA 8.6 MG TAB PO SCH (21:00)
[2019-10-24] MEDS: CEFAZOLIN 2000MG 2,000 MG/15 ML SYR IV SCH (00:30)
[2019-10-24] MEDS: ACETAMINOPHEN 500 MG TAB PO SCH (05:32)
[2019-10-24] MEDS: KETOROLAC TROMETHAMINE 15 MG/ML VIAL IV SCH (05:32)
[2019-10-24] MEDS: OXYCODONE HCL IR 5 MG TAB (IMMEDIATE RELEASE) PO PRN ×2 (05:42→12:11)
[2019-10-24 06:58] LABS: Hematocrit (blood only) 32.7 % (37-47); Hemoglobin 11.7 g/dL (12.0-16.0); Mean Corpuscular Hemoglobin 33.2 pg (25-34); Mean Corpuscular Hgb Conc 35.8 g/dL (32-36); Mean Corpuscular Volume 92.9 fL (80-100); Mean Platelet Volume 8.7 fL (7.4-10.4); Platelet Count 224 K/uL (130-400); RDW Coefficient of Variation 12.5 % (11.5-14.5); RDW Standard Deviation 42.3 fL (36.4-46.3); Red Blood Count 3.52 M/uL (4.2-5.4); White Blood Count 18.39 K/uL (4.8-10.8)
[2019-10-24 07:23] LABS: BUN Creatinine Ratio 12.8 (10-20); Calcium 8.5 mg/dl (8.5-10.1); Creatinine Clr Calc Pharmacy 82.8 ml/min; Est GFR (African American) 117.6; Est GFR (Non-African American) 101.5; Potassium 3.4 mmol/L (3.5-5.1)
[2019-10-24] MEDS ORDERED: dexAMETHasone 4 MG TAB PO SCH (08:00)
[2019-10-24] MEDS: CHECK SCOPOLAMINE PATCH PLACEMENT SCH (08:02)
[2019-10-24] MEDS: DOCUSATE SODIUM 100 MG CAP PO SCH (08:04)
--- NOTE | 2019-10-24 08:21 | Anesthesiology Progress Note ---
Date of Service October 24, 2019 Anesthesia Post Procedure Vital Signs Vital Signs: Temp Pulse Pulse Pulse Resp BP BP 10/24/19 07:48 36.7 C 64 16 114/77 10/24/19 02:47 36.5 C 76 14 125/73 10/23/19 22:53 36.7 C 70 14 129/77 10/23/19 19:00 36.7 C 72 16 120/76 10/23/19 15:34 36.5 C 73 18 111/72 10/23/19 14:20 36.4 C L 72 16 106/76 10/23/19 13:20 34.4 C L 63 16 116/79 10/23/19 12:52 36.4 C L 64 16 120/79 10/23/19 12:05 36.6 C 61 16 113/64 10/23/19 11:55 66 16 118/66 10/23/19 11:45 36.6 C 69 16 113/66 10/23/19 11:35 65 16 114/66 10/23/19 11:26 36.4 C L 69 16 111/71 Pulse Ox 10/24/19 07:48 97 10/24/19 02:47 98 10/23/19 22:53 97 10/23/19 19:00 98 10/23/19 15:34 98 10/23/19 14:20 98 10/23/19 13:20 98 10/23/19 12:52 99 10/23/19 12:05 99 10/23/19 11:55 98 10/23/19 11:45 99 10/23/19 11:35 95 10/23/19 11:26 97 Notes Mental Status: alert / awake / arousable and participated in evaluation Nausea / Vomiting: adequately controlled Pain: adequately controlled Airway Patency, RR, SpO2: stable & adequate BP & HR: stable & adequate Hydration State: stable & adequate Neuraxial Anesthesia: was administered
[2019-10-24] MEDS ORDERED: hydroCHLOROthiazide 25 MG TAB PO SCH (09:00)
[2019-10-24] MEDS ORDERED: ESCITALOPRAM OXALATE 10 MG TAB PO SCH (09:00)
[2019-10-24] MEDS ORDERED: ASCORBIC ACID COLLAGEN PO SCH (09:00)
[2019-10-24] MEDS ORDERED: BuPROPion XL 300 MG TABCR PO SCH (09:00)
[2019-10-24] MEDS ORDERED: lisinopriL 10 MG TAB PO SCH (09:00)
[2019-10-24] MEDS ORDERED: MULTIVITAMIN TAB PO SCH (09:00)
[2019-10-24] MEDS: ASPIRIN 81 MG ECTAB PO SCH (10:14)
--- NOTE | 2019-10-24 11:28 | Orthopedic Progress Note ---
Date of Service October 24, 2019 Assessment & Plan (1) S/P total knee arthroplasty: PT/OT WBAT with walker and immobilizer for first 48hrs post op DVT prophy with TEDs and Aspirin Dressing changed (keep in place) Ice with EZ wrap Discharge after lunch with in home health services Pain control with PO meds F/u at [facility] as previously scheduled in 2 wks With questions call: Admission and Anticipated Discharge Date Admission Date: October 23, 2019 Subjective This 49 yo F is day 1 s/p Left Total Knee Arthroplasty. She states that feels great and has no pain at present. She has been able to ambulate without difficulty with her knee immobilizer in place with walker assistance. She states that she is ready to be discharged home and is have in home health services for her first 2 wks of PT. Currently she denies CP, SOB, nausea, vomiting, fever, chills, sweats or lethargy. Review of Systems Review of Systems: All systems reviewed & are unremarkable except as noted in Subjective Physical Exam Physical Exam: Left knee: Sherwin, Webrill and Xeroform dressings removed. Zipper in place. Very scant blood drainage on dressings. Area lightly cleansed with saline sponge and Silverlon applied, along with knee high JACI. Mild edema about knee. ROM not tested. Able to actively perform SLRT and dorsi/plantar flex foot. Numb/tingly sensation over anterior surface of lower leg. Calf soft and supple. Quad strength 4/5. NV intact. Periph pulses easily palpable. Cap refill < 2 seconds. Results & Data ([facility]) Vital Signs (Past 12 Hours) Vital Signs Temp Pulse Resp BP BP Pulse Ox 10/24/19 07:48 36.7 C 64 16 114/77 97 10/24/19 02:47 36.5 C 76 14 125/73 98 Laboratory Results 10/24/19 10/24/19 Range/Units 06:32 06:32 WBC 18.39 H (4.8-10.8) K/uL RBC 3.52 L (4.2-5.4) M/uL Hgb 11.7 L (12.0-16.0) g/dL Hct 32.7 L (37-47) % MCV 92.9 (80-100) fL MCH 33.2 (25-34) pg MCHC 35.8 (32-36) g/dL RDW Std Deviation 42.3 (36.4-46.3) fL RDW Coeff of Francine 12.5 (11.5-14.5) % Plt Count 224 (130-400) K/uL MPV 8.7 (7.4-10.4) fL Sodium 139 (136-145) mmol/L Potassium 3.4 L (3.5-5.1) mmol/L Chloride 106 (98-107) mmol/L Carbon Dioxide 27 (21-32) mmol/L Anion Gap 6.0 (3-11) BUN 9 (7-18) mg/dl Creatinine 0.69 (0.6-1.2) mg/dl Est Cr Clr Drug Dosing 82.8 ml/min Est GFR ( Amer) 117.6 Est GFR (Non-Af Amer) 101.5 BUN/Creatinine Ratio 12.8 (10-20) Glucose 103 H (70-99) mg/dl Calcium 8.5 (8.5-10.1) mg/dl
--- NOTE | 2019-10-24 11:29 | Discharge Summary ---
Date of Service October 24, 2019 Admission HPI Per Admitting Provider PRE-OP Diagnosis: Left knee osteoarthritis Planned Procedure: Left total knee arthroplasty History of Present Illness (including history relevant to procedure): This 49-year-old female presents to the clinic today for her preoperative history and physical examination. Patient was initially scheduled for this procedure in early August but it was canceled due to the COVID-19 pandemic. The patient complains of a longstanding history of left knee pain that developed after her initial knee surgery at age 12. She states that she has had 3 arthroscopic knee surgeries in the past and since this past April has experienced significant knee pain after running a half marathon. The patient states that she has failed conservative treatment with injections, use of nonsteroidal agents, and physical therapy, as well as her 3 previous knee surgeries. The patient elects to proceed with a total knee arthroplasty because the pain is affecting her activities of daily living. Past Medical History: Problems: Osteoarthritis of left knee Pre-op exam Hypertension Acute sinusitis Rectal bleeding Lower abdominal pain Sebaceous cyst Subconjunctival hemorrhage Acute diverticulitis Skin lesion Weight disorder Bronchospasm, exercise-induced Adjustment disorder with mixed emotional features Abnormal mammogram of right breast Depressive disorder Anxiety state Decreased hearing Body mass index 25-29 - overweight Dyspnea Procedure History Procedure Procedure Date Comments Repair of knee joint - x2 Ablation Uterine Trigger finger Punch biopsy of skin 07/04/2019 Mammogram 04/02/2019 - No mammographic evidence of malignancy Ablation 09/30/2018 - negative for intraepithelial lesion or malignancy. CT of abdomen and pelvis 08/27/2018 - 1. CT findings indicative of acute sigmoid diverticulitis. No evidence of peridiverticular abscess 2. No evidence of bowel obstruction. no evidence of free air.3. 34 mm right adnexal cyst likely ovarian. Screening mammogram of right breast 03/29/2018 - Impression: There is no mammographic evidence of malignancy. A 1 year screening mammogram is recommended. (03/30/2019). The patient will receive written notification of the results. Cervical discectomy anterior bilateral foraminotomies C5-6, C6-7 12/10/2017 Chest x-ray 11/15/2017 - Impression: No acute process. Removed bone spur left shoulder and removed some bursitis 2017 Colonoscopy 10/27/2016 - -Diverticulosis in the sigmoid colon-no specimens collected CT of abdomen and pelvis 09/06/2016 - Acute sigmoid diverticulitis. No free air or abscess.Normal appendixSmall amount of fluid within the pelvis. Ultrasound scan of lower abdomen 09/06/2016 - Nonvisualization of the appendix. Excision 04/25/2016 - right anterior neck Mammogram 03/17/2016 - Cat 2- benign Echocardiogram 11/11/2015 - Normal LV size and systolic function with no regional wall motion abnormalities. Ejection fraction 60%. No left ventricular hypertrophy. Normal LV diastolic function. Normal E/e' ration. A complete report is available with the images in [facility] and is also available in Powerchart. Chest x-ray 11/03/2015 - Negative chest x-ray Mammogram, Right diagnostic 10/07/2015 - Impression: Hypoechoic 6 mm mass in the right breast at 7:00 is stable: this was recent biopsied and yielded benign pathology. Other small benign cysts are seen within the right breast ultrasound. There is no mammographic or targeted sonographic evidence of malignancy. Return to annual mammogram screening schedule is recommended, due March 2016. The patient has been verbally notified of the results. CXR - Chest X-ray 08/03/2015 - Negative chest Mammogram 04/03/2015 - unilat of right breastu/s guided bx Biopsy 04/03/2015 - S/P U/S guided core bx of a sonographically identified solid mass int the 7:00 right breast, with bx marker placement. Mammogram 03/19/2015 - CAT 4B- intermediate suspicion for malignancy, targeted u/s. Mammogram 03/15/2015 - CAT 0- incopmplete PAP test date 09/11/2014 - Negative for intraepithelial lesion or malignancy Mammogram 01/23/2014 Allergies and Sensitivities: NKA FAMILY HISTORY: Positive for heart attack, hypertension, muscular dystrophy, and type 2 diabetes. SOCIAL HISTORY: The patient consumes 1 alcoholic beverage per week and states she quit smoking cigarettes 10 years ago. She denies any illicit drug use. Current Home Meds: (Last Updated 10/16 13:16) (buPROPion 300 mg/24 hours (XL) oral tablet, extended release) 300 mg PO Daily(Lexapro 5 mg oral tablet) 5 mg PO Daily(hydroCHLOROthiazide 25 mg oral tablet) TAKE 1 TABLET BY MOUTH EVERY DAY(lisinopril 10 mg oral tablet) TAKE 1 TABLET BY MOUTH EVERY DAY(meloxicam 15 mg oral tablet) 15 mg PO Daily Admission Exam Per Admitting Provider Physical Exam: (relevant to the procedure, including heart and lung evaluation) Skin: The patient's skin is normal in appearance. No open skin lesions or discharge. Eyes: Pupils are equal and reactive to light and accommodating. Extraocular movements are intact. Throat: Posterior oropharynx clear with absence of edema, erythema, exudate. Cardiovascular: The patient has a regular rate and rhythm with no murmurs or gallops appreciated. Lungs: Auscultation of lung marie reveals clear breath sounds throughout. No wheezing, rales, or rhonchi. Abdomen: Nonobese, nondistended, nontender with normoactive bowel sounds. Extremities: Left knee range of motion is limited to 5 degrees of extension and 130 degrees of flexion. She has tenderness over the medial and lateral joint spaces when the knee is placed in the flexed position. The patient has no edema, erythema, ecchymosis, warmth, or palpable bony deformity. No varus or valgus laxity. Negative drawer sign. Negative Abdifatah test. Her patella is difficult to manipulate due to arthritic changes within the patellofemoral joint. Otherwise, her calf is soft, supple, nontender to palpation. She is neurovascularly intact in the left lower extremity. Neurological: Cranial nerves 2 through 12 are intact. No motor or sensory deficits. Psychological/General: The patient is alert and oriented x3 with proper grooming and hygiene. Principal Diagnosis Left knee osteoarthritis Discharge Exam Left knee: Sherwin, Webrill and Xeroform dressings removed. Zipper in place. Very scant blood drainage on dressings. Area lightly cleansed with saline sponge and Silverlon applied, along with knee high JACI. Mild edema about knee. ROM not tested. Able to actively perform SLRT and dorsi/plantar flex foot. Numb/tingly sensation over anterior surface of lower leg. Calf soft and supple. Quad strength 4/5. NV intact. Periph pulses easily palpable. Cap refill < 2 seconds. Discharge Data Allergies Allergy/AdvReac Type Severity Reaction Status Date / Time No Known Allergies Allergy Verified 10/23/19 07:38 Consultations 10/23/19 11:27 Consult Case Management - Discharge Planning Routine Procedures Performed Operation Date: 10/23/19 07:00 <No data on this case meets the specified criteria> Operation Date: 10/23/19 09:00 Actual Procedures p Left Total Knee Arthroplasty(Left) - Santos Sosa MD Ordered Studies 10/23/19 05:00 US - OR guided needle placemen Routine Hospital Course (1) S/P total knee arthroplasty: Patient did very well overnight without complication. She is ready to be discharge home with home health services for her first 2 wks of PT. PT/OT WBAT with walker and immobilizer for first 48hrs post op DVT prophy with TEDs and Aspirin Dressing changed (keep in place) Ice with EZ wrap Discharge after lunch with in home health services Pain control with PO meds F/u at [facility] as previously scheduled in 2 wks With questions call: Total Time Total Time Spent Total Time Spent (In Minutes): 15 mins Total Time Includes: Examination of the Patient, Discharge Planning and Medication Reconciliation Discharge Plan Discharge Items Patient Disposition: Home - Home Health Services Reason For Visit: Left Knee Osteoarthritis Discharge Diagnosis: Left knee osteoarthritis Activity: As commented below Lifting: None Bathing: Keep incision dry Bathing Comment: May shower tomorrow Sexual Activity: Wait until after follow-up appointment Exercise/Sports: Wait until after follow-up appointment Driving/Machine Use: No driving until cleared by adult specialist Weightbearing: Left weightbearing Weightbearing Comment: as tolerated with immobilizer and walker Non-emergency contact: Primary Care Provider Call non-emergency contact if: you have any medication questions, your pain is not controlled, your temperature is above 101.5, your wound has increased drainage and your wound pain has increased Follow-up/Referrals: Elise Lozano [Primary Care Provider] - Diet: Regular Addtl Attending Provider Instructions: Post-operative Instructions Dear Patient and Family/Friends, Before you are discharged from the hospital, it is important to know what to expect when you get home after surgery. To that end, we have created this sheet of discharge instructions which covers many commonly asked questions. Make sure you go through this sheet in its entirety with your nurse before you are discharged. Please note that we will go over the specifics of your surgery and recovery when you return for your first post-operative visit. Sincerely, Dr. Sosa Medications 1. Oxycodone 5 mg: take 1-2 tabs by mouth every 4-6 hours as needed for pain relief. A prescription for 30 tabs of this medication will be sent to your pharmacy. 2. Diclofenac Sodium 75 mg: take 1 tab twice daily for 30 days post operatively for pain and inflammation relief. A prescription for this with 1 refill will be sent to your pharmacy. Do not take Meloxicam while using this medication. 3. Aspirin 81 mg: Take 1 tab twice daily for 30 days post operative for blood clot prevention. Please purchase this medication. 4. Extra Strength Tylenol 500mg: take 2 tabs every 6-8 hours as needed for pain relief. Please purchase. Pain Expect to be in a fair amount of pain after surgery. Remember, our goal is not to eliminate your pain, but to make it tolerable. It is a good idea to stay ahead of your pain by taking the medications you were prescribed once you get home. Typically, the pain starts improving 3-7 days after surgery. You should start weaning off the narcotic pain medication (oxycodone, hydrocodone, hydromorphone, morphine) as soon as your pain improves. Please call our office if your pain is not adequately controlled. Ice Ice your operative site at least 5 times a day for 15-30 minutes at a time. Make sure you have a thin cloth between the ice or cooling unit and your skin to prevent norton bite. This is especially important if you received a nerve block. Continue icing your operative site for the first 5-7 days after surgery, then as needed. Diet/Nausea/Vomiting Start by drinking clear liquids and eating crackers. If you can tolerate this, then you may resume your normal diet. If you feel nauseated or vomit, take Zofran/ondansetron (if prescribed). Please call our office if you have intractable nausea or vomiting, or, if after hours, you may go to the Emergency Room for help. Constipation Constipation is a common side effect of narcotic pain medication. If you have not had a bowel movement within 2 days after surgery, we recommend purchasing an over the counter laxative such as Milk of Magnesia, Dulcolax, or Miralax from a local pharmacy, and taking it as instructed. Call our clinic if any questions. Slings and Braces If you were placed in a sling or brace, it must be worn at all times, including sleep. You may remove your sling or brace for physical therapy, home exercises, and showering. The length of time you will be in your brace and range of motion restrictions depends on what surgery you had; these details will be reviewed at your first post-operative appointment. Nerve block The anesthesia team sometimes places a nerve block to help with post-operative pain control. This results in significant numbness and inability to move the extremity. The nerve block usually wears off in 8-12 hours, but sometimes can last up to 24 hours. Please call our office if you are still unable to move your extremity after 24 hours, unless you received a pain pump to take home. Nerve blocks typically wear off quickly, so start taking pain medication as soon as you start feeling soreness near your surgical site. Weight bearing and Range of Motion. Do not bear any weight through your operative extremity immediately after pineda rgery. If you had upper extremity surgery, do not lift anything with that arm. If you are in a knee brace, keep it locked in place until your follow-up. We will discuss your weight bearing, range of motion, and lifting restrictions in detail at your first post-operative appointment. Continuous Passive Motion (CPM) Machine If you were prescribed a CPM machine, it will start after your first post- operative appointment, at which time we will give you instructions on the range of motion settings and duration of treatment Physical therapy You will be given a prescription for physical therapy or occupational therapy at your first post-operative appointment. Typically, patients start therapy within 1 week of surgery Wound care and showering We will inspect your wound at your first post-operative visit, and may do a dressing change at that time. Most patients will be in a water-proof dressing that is removed 14 days after surgery. It is normal to see some dried blood on the dressing. Do not remove your dressing, paper strips or sutures yourself unless you are given permission. Showering is allowed the day after surgery. Do not scrub or remove any dressings. The wound should not be submerged underwater (i.e. in a bathtub or pool) until 4 weeks after surgery JACI stockings If you were given white stockings, these are to be worn at all times except to shower (on both legs) for the first 2 weeks after surgery. Driving You may not drive while taking narcotic pain medication or while in a cast, splint, sling or brace. You, the patient, need to make the final determination about when you are safe to drive, however, the earliest you may consider driving after surgery is below: Hand/Wrist/Elbow Surgery: 3 days Shoulder Surgery: 2 weeks Hip,/Knee/Ankle Surgery: 4 weeks Fracture repair: 6 weeks Return to Work Your return to work depends on what surgery was done and what type of work you do. Please bring any paperwork your employer needs completed to your first post-operative visit. Also, bring a description of your job duties, as this helps us to understand what risks you may face at work. Travel Avoid long distance travel (greater than 1 hour) in airplanes and cars for the first 6 weeks after surgery. If you must travel, you need to have a Doppler ultrasound done before you travel to rule out a blood clot in your legs. Follow-up You should have a follow-up appointment already scheduled 1-2 days after surgery. If not, please contact our office to make this appointment before you leave the hospital. When to call the office It is normal to have swelling and bruising in the limb that was operated on. This will improve with time. It is also normal to have fevers for the first 2 days after surgery. Reasons you should call your doctor include: Uncontrolled pain; Nausea, vomiting, or constipation that does not improve with medication; Fevers over 101.5, chills, sweats; Drainage or bleeding from the wound; Foul odor; Spreading areas of redness; Any other concerns Pending Studies at Discharge: No Stand-Alone Forms: My [facility] Medications and DC Order Prescriptions: New oxycodone 5 mg tablet 5 mg PO Q6H Qty: 30 RF: 0 diclofenac sodium 75 mg tablet,delayed release (DR/EC) 75 mg PO BID 30 Days Qty: 60 RF: 1 Continued escitalopram oxalate [Lexapro] 5 mg Tablet 5 mg PO QAM RF: 0 lisinopril 10 mg tablet 10 mg PO QAM RF: 0 hydrochlorothiazide 25 mg tablet 25 mg PO QAM RF: 0 bupropion HCl 300 mg tablet extended release 24 hr 300 mg PO QAM RF: 0 Collagen Plus Vitamin C 125-740 mg Capsule 1 cap PO QAM RF: 0 Discontinued meloxicam 15 mg tablet 15 mg PO DAILY PRN (Reason: pain) Qty: 30 RF: 2 ibuprofen 200 mg Capsule 800 mg PO Q6H PRN (Reason: Pain) RF: 0 Discharge Orders: Discharge Order (Routine); Ordered 10/24/19 Ordered By: Krish Montilla Admission Data Admit Date/Time: 10/23/19 12:17 Attending Provider: Santos Sosa Admit Provider: Santos Sosa Primary Care Provider: Elise Lozano Other Providers: [facility]
[2019-10-24] MEDS ORDERED: CeleBREX 200 MG CAP PO SCH (21:00)
== END 2019-10-24 14:04 | disposition home health service (06) | DRG 470 ==
LOC: ASU 07:11 → 3E 12:17

== ENCOUNTER 2021-06-12 14:19 | Observation (INO) ==
[2021-06-12] MEDS ORDERED: PROMETHAZINE HCL 12.5 MG in SODIUM CHLORIDE 0.9% 50 ML IV PRN (15:03)
[2021-06-12] MEDS ORDERED: traMADol HCL 50 MG TABLET PO PRN (15:03)
[2021-06-12] MEDS ORDERED: LORazepam 0.5 MG/1 ML VIAL IV PRN (15:03)
[2021-06-12] MEDS ORDERED: ONDANSETRON INJ 2 MG/ML 2 ML VIAL IV PRN (15:03)
[2021-06-12] MEDS ORDERED: KETOROLAC TROMETHAMINE 15 MG/ML VIAL IV PRN (15:03)
[2021-06-12] MEDS ORDERED: ONDANSETRON 4 MG OD TAB PO PRN (15:03)
[2021-06-12] MEDS ORDERED: MAGNESIUM HYDROXIDE SUSP 30 ML UDC PO PRN (15:03)
[2021-06-12] MEDS ORDERED: diphenhydrAMINE Capsule 25 MG CAP PO PRN (15:03)
[2021-06-12] MEDS ORDERED: NALOXONE HCL 0.4 MG/1 ML VIAL/CARP IV PRN (15:03)
[2021-06-12] MEDS ORDERED: ACETAMINOPHEN 500 MG TAB PO PRN (15:03)
[2021-06-12] MEDS ORDERED: METOCLOPRAMIDE HCL INJ 5 MG/ML 2 ML VIAL IV PRN (15:03)
[2021-06-12] MEDS ORDERED: ACETAMINOPHEN 1,000 MG/100 ML VIAL IV PRN (15:03)
[2021-06-12] MEDS ORDERED: LORazepam 0.5 MG TAB PO PRN (15:03)
--- NOTE | 2021-06-12 15:57 | Emergency Department Note ---
History of Present Illness General Chief complaint: Neck Injury/Pain Stated complaint: NECK PAIN, RADIATING, NUMB HANDS Time Seen by Provider: 06/12/21 14:30 History of Present Illness Maximum Pain Intensity: 8 This 50-year-old female presents today for evaluation of cervical neck pain that is radiating to both arms. She notes some tingling in both arms. No true numbness. She has a known history of previous cervical spine fusion from C4-C7. This was done by Dr. Souza a few years ago. She states that she has known hardware loosening. She has been scheduled for revision several times over the last several months, but each time it has been canceled due to lack of beds in the hospital. She states her symptoms are getting worse, and she is frustrated. She is here to have something done. No new trauma. She denies any falls. She does note weakness of both upper extremities. Left side seems to be more involved than the right. [id number]. No other complaints. Home Medications Medication Instructions Recorded Confirmed Type bupropion HCl 300 mg 24 hr tablet, 300 mg PO QAM 05/07/19 06/12/21 History extended release hydrochlorothiazide 25 mg tablet 25 mg PO QAM 05/07/19 06/12/21 History lisinopril 10 mg tablet 10 mg PO QAM 05/07/19 06/12/21 History valacyclovir 1 gram tablet 1,000 mg PO DIRECTED PRN 07/30/20 06/12/21 History (Valtrex) escitalopram oxalate 5 mg/5 mL 7.5 mg PO QAM ml 04/22/21 06/12/21 History oral solution oxycodone 5 mg tablet 5 mg PO Q4H PRN #15 tab 05/02/21 06/12/21 Rx multivitamin 1 tab PO QAM 06/12/21 06/12/21 History Allergies Allergy/AdvReac Type Severity Reaction Status Date / Time adhesive Allergy Intermediate Skin Verified 06/12/21 15:21 irritation (? skin scars) Past Med/Surg History Medical History Allergic rhinitis reports chronic, intermittent post-nasal drip and cough x1+ month, following with PCP. CXR negative. Reports improvement with prn Benadryl and OTC antihistamine. Anxiety Arthritis Asthma exercised induced, no issue x years Cervical stenosis of spinal canal Disc degeneration C4, history of injection - Most recent 06/2020 Diverticular disease Hypertension Controlled, stable. OCD (obsessive compulsive disorder) Mild Surgical History Family history of reaction to anesthesia Mother had muscular dystrophy and on trach due to condition - Trouble waking up History of arthroscopy left knee, multiple, last 08/2020. LMA#4, atraumatic placement. Scopolamine patch administered. No issues reported on anesthesia progress note. History of colonoscopy History of left knee replacement 10/23/2019: SAB at L3, 1 attempt + PNB. No reported issues on anesthesia progress note. Hx of hand surgery R trigger finger release > 20 yrs ago Nausea and vomiting after administration of anesthetic agent with cervical fusion, managed well with scop patch 08/2020. S/P cervical spinal fusion HX ACDF C5-C7: 12/10/17: Grade view 1, MAC#3, ETT 7.0 at [facility]. Slight limitation with side to side neck movement. Reports significant PONV. S/P endometrial ablation HX 2009 Family History Mother Family history of diabetes mellitus Father Family history of diabetes mellitus Grandfather (Maternal) Family history of diabetes mellitus Colorectal cancer Grandfather (Paternal) Family history of diabetes mellitus Grandmother (Paternal) Family history of diabetes mellitus Breast cancer Grandmother (Maternal) Family history of diabetes mellitus Denies family history of Ovarian cancer Social History Smoking Status: Former smoker Smoking End Date: 2009; Second Hand Exposure: No; Hx Alcohol Use: Yes Alcohol type: beer, wine and hard liquor Hx Substance Use: No Preferred Language: Lithuanian Communication Ability: Effective Appeals Examiner Required: No Beliefs That Will Affect Care: None marital status: Current Living Situation: Spouse Feels Safe at Home: Yes Safety Concerns: Feels Safe At This Time Assistive Devices: None Review of Systems A total of 10 systems reviewed and were otherwise negative Physical Exam Vital Signs Vital Signs - 24 hr 06/12/21 14:23 Temperature 36.6 C Temperature Source Temporal Artery Scan Pulse Rate 84 Respiratory Rate 16 Blood Pressure 159/95 H Blood Pressure Mean 116 Blood Pressure Position Sitting Pulse Oximetry 98 Oxygen Delivery Method Room Air Sepsis Recent Fever Within 48 Hours No Sepsis New/Unexplained Change in Mental Status No Sepsis Action Taken by Nursing No Action Required General: Well-developed, well-nourished, middle-aged white female, in no acute distress. Obvious discomfort. Sitting on her bed. Alert and oriented. Conversive. Skin: Warm and dry with good turgor. No rashes or lesions. No ecchymosis or erythema. Musculoskeletal: Patient has no obvious asymmetry or deformity. She has discomfort with palpation over her cervical spine from C3-C7. No pain with palpation over the thoracic spine. Soreness extends into the trapezius muscles bilaterally. She has intact motor function of the upper extremities at the shoulders, elbows, wrist, and digits. There is strength 5/5 for resisted elbow flexion and extension. Strength is 4/5 for resisted wrist extension, wrist flexion, finger abduction, pinch senior information developer, and senior information developer. Strength is also 4/5 for resisted thumb extension. This is all bilaterally. Neurologic: Gross sensation is intact across both upper extremities by soft touch. She has decreased objective sensation across the C6 and C8 dermatomes of both arms. Peripheral pulses are 2+. Course Administered Medications Hydromorphone HCl (Hydromorphone Inj 0.5 Mg/0.5 Ml Syr) 0.5 mg IV Q3H PRN PRN Reason: MOD pain (scale 4-6) & Pre PT Stop: 06/26/21 15:02 Last Admin: 06/12/21 22:38 Dose: 0.5 mg Documented by: [id number] Admin: 06/12/21 17:16 Dose: 0.5 mg Documented by: [id number] Lactated Ringer's (Lr) 1,000 mls @ 75 mls/hr IV .[id number] CAMI Stop: 07/12/21 15:14 Last Admin: 06/12/21 16:38 Dose: 75 mls/hr Documented by: [id number] Oxycodone HCl (Oxycodone Hcl Ir 5 Mg Tab (Immediate Release)) 5 - 10 mg PO Q4H PRN PRN Reason: mod to severe pain Stop: 06/26/21 15:02 Last Admin: 06/12/21 19:13 Dose: 5 mg Documented by: [id number] Senna/Docusate Sodium (Docusate Sodium/Senna 50/8.6mg Tab) 2 tab PO HS CAMI Stop: 07/12/21 20:59 Last Admin: 06/12/21 21:43 Dose: 2 tab Documented by: [id number] Medical Decision Making Differential Diagnosis Loosened orthopedic hardware, degenerative disc disease, foraminal stenosis, nerve root impingement Medical Records Attestation: I reviewed the patient's medical records. Home Medications Current Medication List: was personally reviewed by me Laboratory Data CBC, chemistry panel, UA, and COVID 19 tests were obtained. All of these are u nremarkable. COVID is negative. Result diagrams: 06/12/21 15:29 06/12/21 17:05 Lab Results 06/12/21 Range/Units 13:29 SARS-CoV-2, RNA, NAAT NEGATIVE (NEGATIVE) ECG Data Additional Comments: EKG obtained today, reviewed by me, shows a normal sinus rhythm with a rate of 71. No acute ST or T wave changes are noted. No significant changes when compared to EKG from July 2019. Blood Pressure Blood Pressure Findings: Elevated blood pressure Blood Pressure Disposition: elevated BP felt to be situational MDM Narrative Patient was evaluated in room D6. Conservative care measures were discussed. Per patient's request, and given her symptoms, I did call the on-call spine service. I did speak with Guevara GAMBLE. She is familiar with the patient. She did recommend admission with potential surgery later this week. Preoperative lab work and EKG were ordered. Please see her dictation for final disposition. Patient remained stable while in the ED. No additional pain medication was provided at this time. Impression & Plan Degenerative cervical disc, Cervical radiculopathy Admission to spine service for potential surgery later this week. Discharge Plan Visit Data Chief Complaint: Neck Injury/Pain Stated Complaint: NECK PAIN, RADIATING, NUMB HANDS ED Provider: Parker Pierce ED Midlevel Provider: Isaias Bond Discharge Problem: Degenerative cervical disc, Cervical radiculopathy Patient Disposition: Admitted As Inpatient Discharge Instructions Interventions: ED Discharge Assessment Last Done: 06/12/21 19:02
[2021-06-12 16:00] LABS: Hematocrit (blood only) 40.9 % (37-47); Mean Corpuscular Hemoglobin 31.8 pg (25-34); Mean Corpuscular Hgb Conc 34.2 g/dL (32-36); Mean Platelet Volume 8.7 fL (7.4-10.4); Platelet Count 287 K/uL (130-400); RDW Coefficient of Variation 12.8 % (11.5-14.5); RDW Standard Deviation 43.3 fL (36.4-46.3); White Blood Count 10.08 K/uL (4.8-10.8)
[2021-06-12 16:37] LABS: Albumin Globulin Ratio 1.1 (0.9-2); Albumin Level 3.9 gm/dl (3.4-5.0); BUN Creatinine Ratio 27.2 (10-20); Bilirubin,Total 0.2 mg/dl (0.2-1); Calcium 9.7 mg/dl (8.5-10.1); Creatinine Clr Calc Pharmacy 82.2 ml/min; Est GFR (African American) 114.3 ml/min; Est GFR (Non-African American) 98.6 ml/min; Globulin 3.6 gm/dl (2.5-4.0); Total Protein 7.5 gm/dl (6.4-8.2)
[2021-06-12] MEDS: LACTATED RINGER'S 1,000 ML IV SCH (16:38)
[2021-06-12 16:49] LABS: Basophils # (auto) 0.04 K/uL (0-0.2); Basophils % (auto) 0.4 %; Eosinophils # (auto) 0.21 K/uL (0-0.5); Eosinophils % (auto) 2.1 %; Immature Granulocytes # (auto) 0.02 K/uL (0.00-0.02); Immature Granulocytes % (auto) 0.2 %; Lymphocytes # (auto) 4.41 K/uL (1.2-3.4); Lymphocytes % (auto) 43.8 %; Monocytes # (auto) 0.77 K/uL (0.11-0.59); Monocytes % (auto) 7.6 %; Neutrophils # (auto) 4.63 K/uL (1.4-6.5); Neutrophils % (auto) 45.9 %; Polychromasia 1+
[2021-06-12] MEDS: HYDROmorphone INJ 0.5 MG/0.5 ML SYR IV PRN ×2 (17:16→22:38)
[2021-06-12 17:30] LABS: Potassium 3.8 mmol/L (3.5-5.1)
[2021-06-12 17:36] LABS: Aspartate Aminotransferase 16 U/L (15-37); Bilirubin Direct < 0.1 mg/dl (0-0.2)
[2021-06-12] MEDS: oxyCODONE HCL IR 5 MG TAB (IMMEDIATE RELEASE) PO PRN (19:13)
[2021-06-12 19:15] LABS: Appearance Urine Clear (Clear); Bilirubin Urine Negative (Negative); Blood Urine Negative (Negative); Color Urine Yellow; Glucose Urine UA Negative (Negative); Ketones Urine Negative (Negative); Leukocyte Esterase Urine Negative (Negative); Nitrite Urine Negative (Negative); Protein Urine Negative (Negative); Specific Gravity Urine 1.014 (1.000-1.030); Urobilinogen Urine Negative (Negative); pH Urine 7.5 (4.5-7.5)
[2021-06-12] MEDS: DOCUSATE SODIUM/SENNA 50/8.6MG TAB PO SCH (21:43)
[2021-06-13] MEDS: LACTATED RINGER'S 1,000 ML IV SCH ×2 (05:28→18:32)
[2021-06-13] MEDS: oxyCODONE HCL IR 5 MG TAB (IMMEDIATE RELEASE) PO PRN (05:30)
[2021-06-13] MEDS ORDERED: ceFAZolin 2000MG 2,000 MG/15 ML SYR IV SCH (06:00)
--- NOTE | 2021-06-13 08:27 | Electrocardiogram Report ---
Test Reason : Blood Pressure : / mmHG Vent. Rate : 071 BPM Atrial Rate : 071 BPM P-R Int : 158 ms QRS Dur : 088 ms QT Int : 394 ms P-R-T Axes : 055 -12 032 degrees QTc Int : 428 ms Normal sinus rhythm Cannot rule out Septal infarct (cited on or before 12-JUN-2021) Abnormal ECG When compared with ECG of 30-JUL-2019 10:42, Questionable change in initial forces of Anteroseptal leads Confirmed by Orlando Winters ([id number]) on 06/13/2021 8:27:09 AM Referred By: REFERRED SELF Confirmed By:Orlando Winters
--- NOTE | 2021-06-13 08:40 | Anesthesiology Consultation ---
Date of Service June 13, 2021 Assessment & Plan (1) Encounter for pre-operative examination: Chart Review Chart Review: Acceptable Risk for Surgery History Surgery Operation Date: 06/13/21 07:00 Proposed Procedures p C4-C5 Anterior Cervical Discectomy Fusion, Hardware Removal - Brian Souza DO Height/Weight Height: 5 ft Weight: 69.9 kg Allergies Allergy/AdvReac Type Severity Reaction Status Date / Time adhesive Allergy Intermediate Skin Verified 06/12/21 15:21 irritation (? skin scars) Medications Home Medications Medication Instructions Recorded Confirmed Last Taken bupropion HCl 300 mg 24 hr tablet, 300 mg PO QAM 05/07/19 06/12/21 06/12/21 extended release hydrochlorothiazide 25 mg tablet 25 mg PO QAM 05/07/19 06/12/21 06/12/21 lisinopril 10 mg tablet 10 mg PO QAM 05/07/19 06/12/21 06/12/21 valacyclovir 1 gram tablet 1,000 mg PO DIRECTED PRN 07/30/20 06/12/21 Unknown (Valtrex) escitalopram oxalate 5 mg/5 mL 7.5 mg PO QAM ml 04/22/21 06/12/21 06/12/21 oral solution oxycodone 5 mg tablet 5 mg PO Q4H PRN #15 tab 05/02/21 06/12/21 06/12/21 multivitamin 1 tab PO QAM 06/12/21 06/12/21 06/12/21 Active Medications Generic Name Dose Route Start Last Admin Trade Name Freq PRN Reason Stop Dose Admin Hydromorphone HCl 0.5 mg 06/12/21 15:03 06/12/21 22:38 Hydromorphone Inj 0.5 Mg/0.5 Ml Syr IV 06/26/21 15:02 0.5 mg Q3H PRN Administration MOD pain (scale 4-6) & Pre PT Lactated Ringer's 1,000 mls @ 75 mls/hr 06/12/21 15:15 06/13/21 05:28 Lr IV 07/12/21 15:14 75 mls/hr .[id number] CAMI Administration Oxycodone HCl 5 - 10 mg 06/12/21 15:03 06/13/21 05:30 Oxycodone Hcl Ir 5 Mg Tab (Immediate Release) PO 06/26/21 15:02 5 mg Q4H PRN Administration mod to severe pain Senna/Docusate Sodium 2 tab 06/12/21 21:00 06/12/21 21:43 Docusate Sodium/Senna 50/8.6mg Tab PO 07/12/21 20:59 2 tab HS CAMI Administration Past Medical History Medical History Allergic rhinitis reports chronic, intermittent post-nasal drip and cough x1+ month, following with PCP. CXR negative. Reports improvement with prn Benadryl and OTC antihistamine. Anxiety Arthritis Asthma exercised induced, no issue x years Cervical stenosis of spinal canal Disc degeneration C4, history of injection - Most recent 06/2020 Diverticular disease Hypertension Controlled, stable. OCD (obsessive compulsive disorder) Mild Past Family History Family History Mother Family history of diabetes mellitus Father Family history of diabetes mellitus Grandfather (Maternal) Family history of diabetes mellitus Colorectal cancer Grandfather (Paternal) Family history of diabetes mellitus Grandmother (Paternal) Family history of diabetes mellitus Breast cancer Grandmother (Maternal) Family history of diabetes mellitus Denies family history of Ovarian cancer Past Surgical History Surgical History Family history of reaction to anesthesia Mother had muscular dystrophy and on trach due to condition - Trouble waking up History of arthroscopy left knee, multiple, last 08/2020. LMA#4, atraumatic placement. Scopolamine patch administered. No issues reported on anesthesia progress note. History of colonoscopy History of left knee replacement 10/23/2019: SAB at L3, 1 attempt + PNB. No reported issues on anesthesia progress note. Hx of hand surgery R trigger finger release > 20 yrs ago Nausea and vomiting after administration of anesthetic agent with cervical fusion, managed well with scop patch 08/2020. S/P cervical spinal fusion HX ACDF C5-C7: 12/10/17: Grade view 1, MAC#3, ETT 7.0 at [facility]. Slight limitation with side to side neck movement. Reports significant PONV. S/P endometrial ablation HX 2009 Social History Smoking Status: Former smoker tobacco type: cigarettes Smoking End Date: 2009 Hx Alcohol Use: Yes Alcohol type: beer, wine and hard liquor alcohol intake frequency: a few times a month Hx Substance Use: No substance use type: does not use Physical Exam Vital Signs Last Vital Signs Temp 36.6 C 06/13/21 07:25 Pulse 62 06/13/21 07:25 Resp 16 06/13/21 07:25 BP 125/80 06/13/21 07:25 Pulse Ox 100 06/13/21 07:25 Testing Laboratory Results 06/12/21 15:29 06/12/21 17:05 Urine Color Yellow 06/12/21 19:05 Urine Appearance Clear (Clear) 06/12/21 19:05 Urine pH 7.5 (4.5-7.5) 06/12/21 19:05 Ur Specific Girard 1.014 (1.000-1.030) 06/12/21 19:05 Urine Protein Negative (Negative) 06/12/21 19:05 Urine Glucose (UA) Negative (Negative) 06/12/21 19:05 Urine Ketones Negative (Negative) 06/12/21 19:05 Urine Nitrite Negative (Negative) 06/12/21 19:05 Ur Leukocyte Esterase Negative (Negative) 06/12/21 19:05 Laboratory Tests 06/12/21 15:29 Creatinine 0.71 Electrocardiogram Date: 06/12/21 Findings: + NSR @ (71) and + poor R wave progression Echocardiogram Date: 11/11/15 EF: 60% LV Function: normal Valvular Disease: + no significant valvular disease
[2021-06-13] MEDS: buPROPion XL 300 MG TABCR PO SCH (09:21)
[2021-06-13] MEDS: ESCITALOPRAM OXALATE ORAL SOLN 5 MG/5 ML PO SCH (09:21)
[2021-06-13] MEDS: hydroCHLOROthiazide 25 MG TAB PO SCH (10:00)
[2021-06-13] MEDS: lisinopril 10 MG TAB PO SCH (10:00)
--- NOTE | 2021-06-13 10:03 | History & Physical Report ---
Date of Service June 13, 2021 Assessment & Plan (1) Cervical radiculopathy: Plan: Patient is being admitted to Dr. Souza service from the ER. We will proceed with surgical planning. This includes ACDF C4-5, possible hardware removal C5- C7. Risk, benefits, pros cons and alternatives have been outlined in detail. We will proceed with above-mentioned surgical planning as soon as possible. We will continue with pain control. Continue with DVT prophylaxis in the form of teds and SCDs. Admission and Anticipated Discharge Date Admission Date: June 12, 2021 History of Present Illness Chief Complaint: Worsening cervicalgia and bilateral upper extremity pain and weakness left greater than right Primary Care Provider: MARCI Douglas This is a pleasant 50-year-old female male well-known to our practice. She had a prior ACDF C5-C7 Dr. Souza back in 2018. She has known C4-C5 cervical stenosis with migration of the C7 screws. Unfortunately her surgery has been canceled multiple times due to COVID and bed availability at our local hospital. She presents to the emergency room yesterday with progressively worsening symptoms in the form of severe neck pain rating down both arms left is greater than right. She reports associated weakness with this. Denies fevers or chills. She has tried and failed conservative therapy including pain management. This provides very temporary relief. Allergies Allergy/AdvReac Type Severity Reaction Status Date / Time adhesive Allergy Intermediate Skin Verified 06/12/21 15:21 irritation (? skin scars) Home Medications Medication Instructions Recorded Confirmed Type bupropion HCl 300 mg 24 hr tablet, 300 mg PO QAM 05/07/19 06/12/21 History extended release hydrochlorothiazide 25 mg tablet 25 mg PO QAM 05/07/19 06/12/21 History lisinopril 10 mg tablet 10 mg PO QAM 05/07/19 06/12/21 History valacyclovir 1 gram tablet 1,000 mg PO DIRECTED PRN 07/30/20 06/12/21 History (Valtrex) escitalopram oxalate 5 mg/5 mL 7.5 mg PO QAM ml 04/22/21 06/12/21 History oral solution oxycodone 5 mg tablet 5 mg PO Q4H PRN #15 tab 05/02/21 06/12/21 Rx multivitamin 1 tab PO QAM 06/12/21 06/12/21 History Past Med/Surg History Medical History Allergic rhinitis reports chronic, intermittent post-nasal drip and cough x1+ month, following with PCP. CXR negative. Reports improvement with prn Benadryl and OTC antihistamine. Anxiety Arthritis Asthma exercised induced, no issue x years Cervical stenosis of spinal canal Disc degeneration C4, history of injection - Most recent 06/2020 Diverticular disease Hypertension Controlled, stable. OCD (obsessive compulsive disorder) Mild Surgical History Family history of reaction to anesthesia Mother had muscular dystrophy and on trach due to condition - Trouble waking up History of arthroscopy left knee, multiple, last 08/2020. LMA#4, atraumatic placement. Scopolamine patch administered. No issues reported on anesthesia progress note. History of colonoscopy History of left knee replacement 10/23/2019: SAB at L3, 1 attempt + PNB. No reported issues on anesthesia progress note. Hx of hand surgery R trigger finger release > 20 yrs ago Nausea and vomiting after administration of anesthetic agent with cervical fusion, managed well with scop patch 08/2020. S/P cervical spinal fusion HX ACDF C5-C7: 12/10/17: Grade view 1, MAC#3, ETT 7.0 at [facility]. Slight limitation with side to side neck movement. Reports significant PONV. S/P endometrial ablation HX 2009 Family History Mother Family history of diabetes mellitus Father Family history of diabetes mellitus Grandfather (Maternal) Family history of diabetes mellitus Colorectal cancer Grandfather (Paternal) Family history of diabetes mellitus Grandmother (Paternal) Family history of diabetes mellitus Breast cancer Grandmother (Maternal) Family history of diabetes mellitus Denies family history of Ovarian cancer Social History Smoking Status: Former smoker Smoking End Date: 2009; Second Hand Exposure: No; Hx Alcohol Use: Yes Alcohol type: beer, wine and hard liquor Hx Substance Use: No Preferred Language: Tamazight Communication Ability: Effective Accounts Receivable Associate Required: No Beliefs That Will Affect Care: None marital status: Current Living Situation: Spouse Feels Safe at Home: Yes Safety Concerns: Feels Safe At This Time Assistive Devices: Cane and Walker Review of Systems Review of Systems: All systems reviewed & are unremarkable except as noted in HPI & below Physical Exam Physical Exam: Alert and oriented x3 Cooperative with exam Well-healed anterior cervical incision on the right of the neck Positive Spurling's to the left Positive Lhermitte's with cervical extension 4/5 bilateral finger intrinsics, wrist extensors, wrist flexors. Facilities Operator strength is diminished bilaterally Strength is intact bilateral biceps, triceps, deltoid Constitutional: WD/WN, vitals as above Eyes: normal visual marie by confrontation ENMT: external ear and nose normal, oropharynx normal Neck: normal visual inspection Respiratory: normal respiratory effort Cardiovascular: Extremities: normal capillary refill Chest (Breasts): Chest: normal inspection of chest Gastrointestinal (Abdomen): Inspection/Auscultation: abdomen normal to inspection Musculoskeletal: Spine: + pain with cervical ROM Extremities: extremities normal to inspection Skin: no rashes, warm and dry Neurologic: normal touch/pain/proprioception, moves all extremities and + focal motor deficit Psychiatric: A+Ox3, euthymic affect Results & Data Results & Data ([facility]) Vital Signs (Past 12 Hours) Vital Signs Temp Pulse Resp BP Pulse Ox 06/13/21 07:25 36.6 C 62 16 125/80 100 06/12/21 22:31 36.7 C 74 16 147/84 H 98 Code Status & VTE Plan VTE Prophylaxis Plan VTE Prophylaxis will be ordered: Yes
[2021-06-13] MEDS ORDERED: Flu Vaccine (Fluarix) 0.5mL SYR (Standard Dose) IM ONE (12:30)
[2021-06-13] MEDS: HYDROmorphone INJ 1 MG/ML SYRINGE IV PRN (18:31)
[2021-06-13] MEDS: DOCUSATE SODIUM/SENNA 50/8.6MG TAB PO SCH (20:49)
[2021-06-14] MEDS: HYDROmorphone INJ 1 MG/ML SYRINGE IV PRN (01:36)
[2021-06-14] MEDS: LACTATED RINGER'S 1,000 ML IV SCH ×2 (07:24→20:41)
[2021-06-14] MEDS: buPROPion XL 300 MG TABCR PO SCH (07:25)
[2021-06-14] MEDS: ESCITALOPRAM OXALATE ORAL SOLN 5 MG/5 ML PO SCH (07:25)
[2021-06-14] MEDS: lisinopril 10 MG TAB PO SCH (07:25)
[2021-06-14] MEDS: hydroCHLOROthiazide 25 MG TAB PO SCH (07:25)
--- NOTE | 2021-06-14 08:37 | Orthopedic Progress Note ---
Date of Service June 14, 2021 Assessment & Plan (1) Cervical radiculopathy: Plan: At this time we will make her n.p.o. after midnight and plan for surgery tomorrow morning. Admission and Anticipated Discharge Date Admission Date: June 12, 2021 Subjective Patient continues complain of neck and arm symptoms Physical Exam Physical Exam: Physical exam essentially unchanged. Results & Data ([facility]) Vital Signs (Past 12 Hours) Vital Signs Temp Pulse Resp BP Pulse Ox 06/14/21 07:29 36.5 C 69 16 122/74 95 06/13/21 22:30 36.6 C 76 20 132/84 97
[2021-06-14] MEDS: DOCUSATE SODIUM/SENNA 50/8.6MG TAB PO SCH (20:41)
[2021-06-15] MEDS: HYDROmorphone INJ 1 MG/ML SYRINGE IV PRN ×9 (00:08→11:16)
[2021-06-15] MEDS ORDERED: fentaNYL citrate 100 MCG/2 ML VIAL ONE ×2 (06:50→09:02)
[2021-06-15] MEDS ORDERED: ROCURONIUM BROMIDE 10 MG/ML 5 ML VIAL IV ONE ×5 (06:50→09:04)
[2021-06-15] MEDS ORDERED: DEXAMETHASONE SOD INJ 4 MG/ML VIAL ONE (06:50)
[2021-06-15] MEDS ORDERED: PROPOFOL IV EMULSION 10 MG/ML 20 ML VIAL IV ONE (06:50)
[2021-06-15] MEDS ORDERED: ONDANSETRON INJ 2 MG/ML 2 ML VIAL ONE (06:50)
[2021-06-15] MEDS ORDERED: ATROPINE SULFATE 0.1 MG/ML 10ML SYR IV PRN (07:26)
[2021-06-15] MEDS ORDERED: LABETALOL HCL IV 5 MG/ML 20ML IV PRN (07:26)
[2021-06-15] MEDS ORDERED: ePHEDrine sulfate 50 MG/ML AMP IV PRN (07:26)
[2021-06-15] MEDS ORDERED: PHENYLEPHRINE 100MCG/ML 5ML SYR IV PRN (07:26)
[2021-06-15] MEDS ORDERED: ONDANSETRON INJ 2 MG/ML 2 ML VIAL IV PRN ×2 (07:26→13:22)
[2021-06-15] MEDS ORDERED: SCOPOLAMINE 1 MG TDSY TD SCH (08:00)
[2021-06-15] MEDS ORDERED: SCOPOLAMINE 1 MG TDSY TD ONE (08:03)
[2021-06-15] MEDS ORDERED: ceFAZolin 2,000 MG/15 ML IV PUSH IV ONE (08:10)
--- NOTE | 2021-06-15 08:14 | History & Physical Bridge Note ---
Date of Service June 15, 2021 History & Physical Bridge Note I have examined the patient, reviewed the History & Physical and in the interval since the performance of the History & Physical I have noted the following changes of clinical significance: no changes noted C4-C5 anterior cervical discectomy and fusion, C5-C7 hardware removal
[2021-06-15] MEDS ORDERED: GLYCOPYRROLATE 0.2 MG/ML VIAL ONE (09:05)
[2021-06-15] MEDS ORDERED: NEOSTIGMINE METHYLSULFATE 1 MG/ML 10ML VIAL ONE (09:05)
[2021-06-15] MEDS ORDERED: ePHEDrine sulfate 50 MG/ML SYR ONE (09:31)
[2021-06-15] MEDS ORDERED: PHENYLEPHRINE 100MCG/ML 5ML SYR ONE (09:31)
[2021-06-15] MEDS ORDERED: FLOSEAL HEMOSTATIC MATRIX 5ML TOP ONE (09:45)
--- NOTE | 2021-06-15 10:03 | Operative Report ---
Post Operative Report Pre & Post Diagnosis Operation Date: 06/15/21 08:45 Pre-Op Diagnosis: Cervical Stenosis C4-C5, Previous Fusion C5-C7 Post-Op Diagnosis: Cervical Stenosis C4-C5, Previous Fusion C5-C7 I identified the patient and participated in the time-out.: Yes Procedure Operation Date: 06/15/21 08:45 Actual Procedures #1 removal of anterior cervical instrumentation. #2 anterior cervical discectomy with bilateral foraminotomies C4-C5. #3 anterior cervical arthrodesis C4-C5. #4 placement of globus coalition cage 7 mm in height C4-C5. #5 placement of I factor in the interbody cage. Surgeon Brian Souza, Dock Hand Luciana Levy Estimated Blood Loss 20 Findings Consistent with Post-Op Diagnosis Specimens None Indications This is a 50-year-old female who presents with steady marked decline in status with bilateral arm pain right greater than left. After failing extensive course of nonoperative care and continued neurologic decline she is here for urgent decompression fusion Description of Procedure Patient was met with identified informed consent obtained. Patient was then taken to the operative suite underwent an patient placed in spine position the Josemanuel table head Burris splitter head. All bony prominences well-padded eyes inspected to ensure no external pressure placed upon the. This point the anterior cervical spine was prepped and draped in normal sterile fashion. With the assistance of fluoroscopy identified the C5-C6 disc base and a transverse incision was placed on the right anterior aspect of the cervical spine overlying this region. Blunt dissection with the assistance of bipolar electrocautery was performed down to and exposing the cyst C4-C5 disc space as well as the anterior plate extending from feet C5-C7. I then was able to dissect down to the inferior left C7 screw. The screw was partially displaced. The screw was removed without difficulty and evidence of loosening was apparent. The screw was well fixed. I elected to leave the screw hole vacant as the fusion mass appeared to be mature and intact. I then performed a complete discectomy of see for C5 out to the uncovertebral's bilaterally. Williams distracting pins utilized to assist in visualization. Removed all posterior annular fibers longitudinal ligament bilateral foraminotomies performed. Endplates were then burred to subcortical bleeding bone and a 7 mm coalition cage tapped into position. Was filled with I factor. 16mm screws were utilized for fixation. He demonstrated excellent purchase. Incision was then copiously irrigated explored to ensure no damage to surrounding structures remaining bleeding. 10 round JOSH drain inserted. The incision was then closed with 2 Vicryl in a fashion of 4 Monocryl for final skin closure. Steri-Strip sterile dressings placed. Patient waken taken PACU stable condition. Please note spinal cord monitoring was utilized at the procedure no changes noted. Lastly Luciana Levy was present at the entire surgeon while the patient positioning complex portions of the surgery and final skin closure. I attest to the content of the Intraoperative Record and any orders documented therein. Any exceptions are noted below.
[2021-06-15] MEDS: fentaNYL citrate 100 MCG/2 ML VIAL IV PRN ×4 (10:19→10:34)
[2021-06-15] MEDS ORDERED: HYDROmorphone INJ 0.5 MG/0.5 ML SYR IV STA (11:20)
--- NOTE | 2021-06-15 11:43 | Fluoroscopy Report ---
FL cervical 2-3V CLINICAL HISTORY: ACDF C4-5. Status post internal fixation COMPARISON STUDY: 7 9 ACT FLUOROSCOPY TIME: 18 seconds. FLUOROSCOPIC IMAGES: 2 FINDINGS: Compared to previous examination, new plate and screw fixation is now seen at C4-5. Previou s plate and screw fixation is noted from C5 through C7. IMPRESSION: Status post anterior plate and screw fixation at C4-5. ACT 112: Negative or not required by law. Electronically signed by: Kevin Vallejo M.D. 06/15/2021 11:42 AM
--- NOTE | 2021-06-15 12:53 | Anesthesiology Progress Note ---
Date of Service June 15, 2021 Anesthesia Post Procedure Vital Signs Vital Signs: Temp Pulse Pulse Resp BP Pulse Ox 06/15/21 12:30 79 12 131/80 92 06/15/21 12:20 84 14 137/82 96 06/15/21 12:10 75 12 127/72 98 06/15/21 12:00 36.6 C 71 13 138/78 97 06/15/21 11:50 75 12 139/77 97 06/15/21 11:40 83 12 147/82 H 97 06/15/21 11:30 86 12 152/87 H 98 06/15/21 11:20 90 16 143/82 H 97 06/15/21 11:10 91 H 18 158/83 H 97 06/15/21 11:00 90 20 150/95 H 98 06/15/21 10:50 90 13 145/76 H 97 06/15/21 10:40 79 13 139/89 97 06/15/21 10:30 83 12 145/81 H 99 06/15/21 10:20 81 12 154/84 H 99 06/15/21 10:12 36.7 C 103 H 17 173/97 H 96 06/15/21 06:55 37 C 69 18 143/90 H 98 06/15/21 06:53 36.5 C 81 20 166/95 H 97 06/14/21 22:15 36.7 C 70 16 152/81 H 95 06/14/21 15:44 36.6 C 73 16 151/86 H 97 Pain Intensity Bilateral Neck: Pain Intensity: 2 Transfer of Care Handoff Completed per policy Notes Mental Status: alert / awake / arousable Patient Amnestic to Procedure: Yes Nausea / Vomiting: adequately controlled Pain: adequately controlled Airway Patency, RR, SpO2: stable & adequate BP & HR: stable & adequate Hydration State: stable & adequate Anesthetic Complications: no major complications apparent and Pt Satisfied with anesthetic care Notes: The patient had some soreness in her throat upon arrival to PACU but it is now improved. Dr. Souza evaluated the patient and thinks she is okay to go to the floor. The patient's dressing is dry and her neck is not swollen.
[2021-06-15] MEDS ORDERED: MAGNESIUM HYDROXIDE SUSP 30 ML UDC PO PRN (13:22)
[2021-06-15] MEDS ORDERED: HYDROmorphone INJ 0.5 MG/0.5 ML SYR IV PRN (13:22)
[2021-06-15] MEDS ORDERED: HYDROmorphone INJ 1 MG/ML SYRINGE IV PRN (13:22)
[2021-06-15] MEDS ORDERED: PROMETHAZINE HCL 12.5 MG in SODIUM CHLORIDE 0.9% 50 ML IV PRN (13:22)
[2021-06-15] MEDS ORDERED: bisacodyL 10 MG SUPP PR PRN (13:22)
[2021-06-15] MEDS ORDERED: ALUMINUM/MAGNESIUM SUSP 30 ML UDC PO PRN (13:22)
[2021-06-15] MEDS ORDERED: NALOXONE HCL 0.4 MG/1 ML VIAL/CARP IV PRN (13:22)
[2021-06-15] MEDS ORDERED: SOD PHOSPHATE/SOD BIPHOSPHATE ENEMA 132 ML BTL PR PRN (13:22)
[2021-06-15] MEDS ORDERED: LORazepam 0.5 MG TAB PO PRN (13:22)
[2021-06-15] MEDS ORDERED: hydrOXYzine HCl 25 MG TAB PO PRN (13:22)
[2021-06-15] MEDS ORDERED: dexAMETHasone 8 MG in SYRINGE 0 ML IV PRN (13:22)
[2021-06-15] MEDS ORDERED: diphenhydrAMINE Capsule 25 MG CAP PO PRN (13:22)
[2021-06-15] MEDS ORDERED: FAMOTIDINE 20 MG TAB PO PRN (13:22)
[2021-06-15] MEDS ORDERED: ONDANSETRON 4 MG OD TAB PO PRN (13:22)
[2021-06-15] MEDS ORDERED: ACETAMINOPHEN 500 MG TAB PO PRN (13:22)
[2021-06-15] MEDS ORDERED: DO NOT ADMINISTER FLU VACCINE PRN (13:22)
[2021-06-15] MEDS ORDERED: ACETAMINOPHEN 1,000 MG/100 ML VIAL IV PRN (13:22)
[2021-06-15] MEDS ORDERED: RACEPINEPHRINE 2.25% NEBU SOLN 0.5 ML VIAL INH PRN (13:22)
[2021-06-15] MEDS ORDERED: LORazepam 0.5 MG/1 ML VIAL IV PRN (13:22)
[2021-06-15] MEDS ORDERED: METOCLOPRAMIDE HCL INJ 5 MG/ML 2 ML VIAL IV PRN (13:22)
[2021-06-15] MEDS ORDERED: DO NOT ADMINISTER PNEUMOCOCCAL VACCINE PRN (13:22)
[2021-06-15] MEDS ORDERED: oxyCODONE HCL IR 5 MG TAB (IMMEDIATE RELEASE) PO PRN ×2 (13:22)
[2021-06-15] MEDS: CHECK SCOPOLAMINE PATCH PLACEMENT SCH ×2 (13:38→15:52)
[2021-06-15] MEDS: LACTATED RINGER'S 1,000 ML IV SCH ×2 (13:59→14:07)
[2021-06-15] MEDS: lisinopril 10 MG TAB PO SCH (13:59)
[2021-06-15] MEDS: hydroCHLOROthiazide 25 MG TAB PO SCH (14:00)
[2021-06-15] MEDS: ESCITALOPRAM OXALATE ORAL SOLN 5 MG/5 ML PO SCH (14:00)
[2021-06-15] MEDS: buPROPion XL 300 MG TABCR PO SCH (14:00)
[2021-06-15] MEDS: dexAMETHasone 6 MG in SYRINGE 0 ML IV SCH ×2 (15:20→21:39)
[2021-06-15] MEDS: ceFAZolin 1000MG 1,000 MG/7.5 ML SYR IV SCH (17:41)
[2021-06-15] MEDS: traMADol HCL 50 MG TABLET PO PRN (18:11)
[2021-06-15] MEDS ORDERED: DOCUSATE SODIUM/SENNA 50/8.6MG TAB PO SCH (21:00)
[2021-06-16] MEDS: LACTATED RINGER'S 1,000 ML IV SCH (00:04)
[2021-06-16] MEDS: CHECK SCOPOLAMINE PATCH PLACEMENT SCH ×2 (00:05→08:21)
[2021-06-16] MEDS: ceFAZolin 1000MG 1,000 MG/7.5 ML SYR IV SCH (01:56)
[2021-06-16] MEDS: traMADol HCL 50 MG TABLET PO PRN ×2 (02:05→09:50)
[2021-06-16] MEDS ORDERED: POLYETHYLENE (MIRALAX) 17 GM PACK PO SCH (06:00)
[2021-06-16] MEDS: dexAMETHasone 6 MG in SYRINGE 0 ML IV SCH (06:05)
--- NOTE | 2021-06-16 08:12 | Discharge Summary ---
Date of Service June 16, 2021 Admission HPI Per Admitting Provider This is a pleasant 50-year-old female male well-known to our practice. She had a prior ACDF C5-C7 Dr. Souza back in 2018. She has known C4-C5 cervical stenosis with migration of the C7 screws. Unfortunately her surgery has been canceled multiple times due to COVID and bed availability at our local hospital. She presents to the emergency room yesterday with progressively worsening symptoms in the form of severe neck pain rating down both arms left is greater than right. She reports associated weakness with this. Denies fevers or chills. She has tried and failed conservative therapy including pain manage ment. This provides very temporary relief. Principal Diagnosis Cervical spinal stenosis with radiculopathy Discharge Data Allergies Allergy/AdvReac Type Severity Reaction Status Date / Time adhesive Allergy Intermediate Skin Verified 06/12/21 15:21 irritation (? skin scars) Consultations 06/12/21 15:03 Consult Anesthesiology Routine 06/12/21 15:09 ED Decision to Admit Stat Procedures Performed Operation Date: 06/15/21 08:45 Actual Procedures p C4-C5 Anterior Cervical Discectomy Fusion, (Not Applicable) - Brian Souza DO s Hardware Removal C5-C7(Not Applicable) - Brian Souza DO Ordered Studies 06/15/21 08:45 FL cervical 2-3V Routine Hospital Course (1) Cervical radiculopathy: Patient was admitted with worsening neck and arm symptoms. She ultimately underwent anterior cervical discectomy C4-C5. She tolerated the procedure well. Postoperatively she had no hoarseness swallowing well arm symptoms markedly improved excellent strength testing JOSH drain decreasing appropriately. Socially discharged home. Discharge orders instructions found the chart for further review. Total Time Total Time Spent Total Time Spent (In Minutes): 20 minutes Discharge Plan Discharge Items Patient Disposition: Home - Self-Care Reason For Visit: CERVICAL STENOSIS Discharge Diagnosis: Cervical spinal stenosis with radiculopathy Activity: As commented below Non-emergency contact: Primary Care Provider Call non-emergency contact if: you have any medication questions Follow-up/Referrals: Elise Lozano CRNP [Primary Care Provider] - Diet: Regular Addtl Attending Provider Instructions: ACTIVITY RECOMMENDATIONS: SELF CARE INSTRUCTIONS AFTER CERVICAL FUSIONS 1. No smoking. Smoking drastically decreases the chance of a solid fusion. 2. No bending, lifting more than 5 pounds, or twisting (roll like a log when turning in bed). 3. You may shower 3 days after surgery. Thoroughly dry wound. Do not soak in the tub. 4. Cervical collar: Must be worn at all times including sleeping. You may remove the brace only to bath, eat and if you are sitting in a recliner. 5. Please walk as much as you can for exercise. Gradually increase the distance that you walk as your endurance increases. SPECIAL CARE INSTRUCTIONS: VERY IMPORTANT TO READ AND REVIEW A. Do not take any anti-inflammatory medications (i.e. Indocin, Advil, Aspirin, Naprosyn, Aleve, Motrin, etc.) as these may inhibit the chance of a solid fusion. Tylenol is okay to take. B. Your surgical incision has been closed with a cosmetic suture under the skin that will dissolve in about 6 weeks. In 14 days, you can use a pair of clean scissors and cut the suture that is left outside of the skin at the ends of your incision. C. Complications are uncommon, but please contact us if you have any signs or symptoms of: 1. wound infection (fever higher than 102.5 degrees F, redness, separation of wound, drainage, or increasing pain from the incision) 2. blood clots in legs (pain, swelling, redness and warmth in legs) 3. urinary tract infection (fever higher than 102.5 degrees, burning upon urination or increased frequency of urination) 4. nerve problems (inability to walk on your toes or heels, numbness, loss of bowel or bladder control) 5. any other symptoms that concern you. D. Please call the office at if you have any concerns or questions about your operation or recovery. MANAGING PAIN AFTER SPINAL SURGERY 1. Narcotic medication is intended for short-term use and will be provided for surgical pain. Surgical pain usually lasts for a period of 4-6 weeks. Narcotic medication includes Percocet, Vicodin, Darvocet, Tylenol #3 or Lortab. 2. Longer-term pain is more appropriately treated with non-narcotic medication such as Tylenol ES. 3. Muscle spasm is not appropriately treated with narcotics. Muscle relaxers such as Soma, Flexeril or Skelaxin can be used along with Tylenol ES. 4. Remember that we all live with some "aches and pains". This is not unusual or uncommon after an injury or as we get older. 5. We will provide appropriate medication within the normal guidelines of their prescribed use. We will also be very cautious and aware of potential abuse and extended duration of patients' medication needs. 6. Please allow 2-3 days to process refills. Prescriptions will not be mailed but must be picked up at the office. FOLLOW UP VISIT: Keep your scheduled follow-up appointment. Any questions, please call the office at . Pending Studies at Discharge: No Stand-Alone Forms: My [facility] [employer], Smoking Cessation Medications and DC Order Prescriptions: New tramadol 50 mg tablet 50 mg PO Q6H PRN (Reason: pain, moderate) Qty: 20 RF: 0 oxycodone 5 mg tablet 5 mg PO Q6H PRN (Reason: pain, severe) Qty: 20 RF: 0 Continued escitalopram oxalate 5 mg/5 mL solution 7.5 mg PO QAM RF: 0 lisinopril 10 mg tablet 10 mg PO QAM RF: 0 hydrochlorothiazide 25 mg tablet 25 mg PO QAM RF: 0 bupropion HCl 300 mg tablet extended release 24 hr 300 mg PO QAM RF: 0 valacyclovir [Valtrex] 1 gram tablet 1,000 mg PO DIRECTED PRN (Reason: HERPES OUTBREAK ) RF: 0 oxycodone 5 mg tablet 5 mg PO Q4H PRN (Reason: pain) Qty: 15 RF: 0 multivitamin Tablet 1 tab PO QAM RF: 0 Discharge Orders: Discharge Order (Routine); Ordered 06/16/21 Ordered By: Brian Souza Admission Data Admit Date/Time: 06/15/21 13:04 Attending Provider: Brian Souza Admit Provider: Brian Souza Primary Care Provider: Elise Lozano. Other Providers: Yulia Montes ; Yareli Andrade ; Helen Bartholomew ; Rika Carbajal ; Louie Elaine ; Demarcus Day ; Remy Carballo ; Hipolito Up ; Allison Up ; Severiano Jauregui ; Rachael Koch ; Jose Hicks ; Kenji Figueroa ; Juan Diego Kendrick ; Liam Robles ; Polina Santacruz ; Elliot Mack ; Mercy Gallagher ; Ann Mack ; Kushal Orellana ; Teresa Kc ; Josse Vasques ; Holli Macias ; Iris Bateman ; Teresa Parsons ; Tiffanie Phelps ; Rakesh Gil ; Martha Taylor ; Maryellen Diallo ; Analisa Melchor ; Kaity Lester ; Leo Lester V ; Johnson Villegas ; Yareli Hopkins ; Bc Pino ; Radha Mccann ; Tresa Patel ; Leo Benitez ; Erik Santacruz ; Grey Browning ; Stephie Cisneros ; Nelsy Martinez ; Leo Trimble ; Analisa Liang ; Hiren Maldonado ; Parker Robles ; Jennifer Angel. ; Javi Kern ; Aaron Ramirez ; Errol Gillette ; Kelvin Dunn ; Javi Willett ; Louie Crocker Jr ; Emi Scott ; Brian Souza
[2021-06-16] MEDS: buPROPion XL 300 MG TABCR PO SCH (08:22)
[2021-06-16] MEDS: lisinopril 10 MG TAB PO SCH (08:22)
[2021-06-16] MEDS: hydroCHLOROthiazide 25 MG TAB PO SCH (08:22)
[2021-06-16] MEDS: ESCITALOPRAM OXALATE ORAL SOLN 5 MG/5 ML PO SCH (08:23)
[2021-06-16] MEDS ORDERED: MULTIVITAMIN TAB PO SCH (09:00)
== END 2021-06-16 12:20 | disposition home or self-care (01) ==
LOC: 3E 14:19 → ED 14:19 → 3E 19:02

== ENCOUNTER 2024-05-05 00:23 | Observation (INO) ==
[2024-05-05] MEDS: HYDROmorphone INJ 0.5 MG/0.5 ML SYR IV STA ×2 (00:52→03:39)
[2024-05-05] MEDS: ONDANSETRON INJ 2 MG/ML 2 ML VIAL IV STA (00:52)
--- NOTE | 2024-05-05 00:55 | Emergency Department Note ---
Impression & Plan Pancolitis, Leukocytosis, Acute GI bleeding Admit to the [facility] ED Provider Note NAME: MEGGAN WATSON AGE: 53 SEX: Female INFORMANT: Patient ED PROVIDER(S): Hollie Downing DO CHIEF COMPLAINT: diffuse abdominal pain and nausea PLAN: Disposition: Admit to the [facility] MEDICAL DECISION MAKING: this is a 53-year-old female patient who presents to the emergency department with diffuse abdominal pain, explosive diarrhea, vomiting and rectal bleeding. The patient is hemodynamically stable but has significant leukocytosis with a white count of 23.4. H&H were stable. Glucose was 122. Renal function was normal. Patient's pain was severe upon arrival and required multiple doses of IV Dilaudid for pain management. CT scan of the abdomen/pelvis shows evidence of a pancolitis. Patient has been unable to provide a stool specimen to this point. She had recently been on a course of antibiotics for bacterial vaginosis. Patient denies any recent travel. The case was discussed with the [facility] and they will evaluate for further inpatient care. Care/management discussed with: manager trade and [facility] Triage Nursing notes: reviewed and agree with them. Vital Signs: reviewed and remarkable for no significant abnormalities Differential Diagnosis: Diverticulitis, colitis, foodborne illness, infectious diarrhea Diagnostics, independently interpreted by me: Cardiac Monitoring: Normal sinus rhythm at a rate of 78 HPI: 53 year old Female arrives for evaluation of crampy abdominal pain and diarrhea. Around 4 PM this afternoon, the patient developed crampy abdominal pain and nausea. She had an episode where she began to sweat and then vomited. She then had explosive diarrhea which then turned bloody. She denies any recent travel. She has just finished a course of antibiotics for diagnosed bacterial vaginosis. The patient recently had an orthopedic surgery performed on her left thumb. PAST MEDICAL HISTORY: See Below, PAST SURGICAL HISTORY: See Below, SOCIAL HISTORY: See Below, HOME MEDICATIONS: See list ALLERGIES: Adhesive VITALS: See Below PHYSICAL EXAMINATION: HEENT: Head - normocephalic and atraumatic. Pupils are equal, round, and reactive to light. Extraocular eye muscles are intact, and sclera are anicteric. Nose - moist nasal mucosa without discharge. Mouth - moist buccal mucosa. Oropharynx is nonerythematous and there is no tonsillar exudate or edema noted. Neck: Supple; no JVD or cervical lymphadenopathy Heart: Regular rate and rhythm. There is a normal S1 and S2 with no murmurs, clicks, or gallops appreciated. Lungs: Clear to auscultation bilaterally with no wheezes, rales, or rhonchi. Abdomen: Soft, diffusely tender, nondistended, with good bowel sounds. There are no palpable pulsatile masses or hepatosplenomegaly. There is no guarding, rigidity, or rebound noted. Extremities: Cast noted on the left hand/wrist/forearm. There are easily palpable peripheral pulses. Skin: warm and dry with good turgor and no rashes. Emergency department treatment: residential monitor, IV Dilaudid, IV Zofran, IV Dilaudid Emergency department course: The patient was evaluated in room A-3. A complete history and physical was performed. IV lock was initiated and labs were drawn as above. Patient was given a dose of IV Dilaudid for pain along with some IV Zofran for nausea. She went for CT scan of her abdomen/pelvis. Upon returning from radiology, she was able to rest for some time. She was unable to provide a stool specimen. She was able to give a urine specimen. The pain began to return and she received a second dose of IV Dilaudid. I reviewed the laboratory findings and CT findings with the patient and her . I discussed the case with the [facility] Hospitalist and they will evaluate for further management. Past Med/Surg History Problem List (Updated 05/05/24 @ 17:25 by Hollie Downing DO) Acute GI bleeding (Acute) Leukocytosis (Acute) Pancolitis (Acute) Hematochezia Pancolitis Postmenopausal atrophic vaginitis Bacterial vaginosis Atrophic vaginitis (Acute) Frequent UTI (Chronic) UTI (urinary tract infection) (Acute) Macromastia Cervical radiculopathy (Acute) Routine gynecological examination Rotator cuff tendonitis Depression Osteoarthritis Encounter for pre-operative examination Osteoarthritis of left knee Degenerative cervical disc (Acute) S/P total knee arthroplasty Status post total knee replacement, left Genital labial ulcer Hematuria HTN (hypertension) Medical History Allergic rhinitis Arthritis Disc degeneration OCD (obsessive compulsive disorder) Diverticular disease Anxiety Asthma Hypertension Cervical stenosis of spinal canal Surgical History Family history of reaction to anesthesia Nausea and vomiting after administration of anesthetic agent History of left knee replacement S/P endometrial ablation Hx of hand surgery History of arthroscopy History of colonoscopy S/P cervical spinal fusion Family History Mother Family history of diabetes mellitus Father Family history of diabetes mellitus Grandfather (Maternal) Family history of diabetes mellitus Colorectal cancer Grandfather (Paternal) Family history of diabetes mellitus Grandmother (Paternal) Family history of diabetes mellitus Breast cancer Grandmother (Maternal) Family history of diabetes mellitus Denies family history of Ovarian cancer Social History Smoking Status: Never smoker Tobacco Type: Cigarettes Second Hand Exposure: No; Do You Dip or Chew Tobacco: No; Hx Alcohol Use: Yes Alcohol type: beer, wine and hard liquor Hx Substance Use: No Preferred Language: Macedonian Communication Ability: Effective Aircraft Motor Mechanic Required: No Beliefs That Will Affect Care: None marital status: Current Living Situation: Spouse Feels Safe at Home: Yes Assistive Devices: Glasses Allergies Allergies Allergy/AdvReac Type Severity Reaction Status Date / Time adhesive Allergy Intermediate Skin Verified 05/05/24 01:44 irritation (? skin scars) Home Meds Home Medications Medication Instructions Recorded Confirmed bupropion HCl 300 mg 24 hr tablet, 300 mg PO QAM 05/07/19 05/05/24 extended release lisinopril 10 mg tablet 10 mg PO QAM 05/07/19 05/05/24 fluoxetine 10 mg capsule 10 mg PO QAM 05/03/22 05/05/24 bupropion HCl 150 mg 24 hr tablet, 150 mg PO QAM 05/05/24 05/05/24 extended release hydrocodone 5 mg-acetaminophen 325 1 tab PO Q6 PRN Pain 05/05/24 05/05/24 mg tablet Previous Rx's Medication Instructions Recorded cyclobenzaprine 10 mg tablet 10 mg PO TID PRN muscle spasm #15 02/25/24 tabs valacyclovir 1 gram tablet 1,000 mg PO DIRECTED PRN HERPES 03/17/24 (Valtrex) OUTBREAK #6 tabs estradiol 0.01% (0.1 mg/gram) 1 g vaginal 2XWK #42.5 grams 04/17/24 vaginal cream Results & Data (ED) Vital Signs Vital Signs - 24 hr 05/05/24 00:28 05/05/24 00:47 05/05/24 00:48 Temperature 36.6 C Temperature Source Temporal Artery Scan Pulse Rate 103 H 90 Pulse Rate [Apical] Pulse Rate from SpO2 Sensor 92 H Pulse Rhythm [Apical] Respiratory Rate 18 23 Respiratory Effort / Characteristics Non-Labored Spontaneous Respiratory Depth Normal Respiratory Pattern Regular Blood Pressure 143/92 H 174/101 H Blood Pressure [Right Arm] Blood Pressure Mean 109 130 Blood Pressure Mean [Right Arm] Blood Pressure Position Sitting Pulse Oximetry 98 100 Oxygen Delivery Method Room Air Sepsis Recent Fever Within 48 Hours No Sepsis New/Unexplained Change in Mental Status N/A Sepsis Action Taken by Nursing No Action Required 05/05/24 00:53 05/05/24 00:54 05/05/24 01:00 Temperature Temperature Source Pulse Rate 90 Pulse Rate [Apical] 98 H Pulse Rate from SpO2 Sensor Pulse Rhythm [Apical] Regular Respiratory Rate 28 H Respiratory Effort / Characteristics Respiratory Depth Respiratory Pattern Blood Pressure 150/95 H Blood Pressure [Right Arm] 174/101 H Blood Pressure Mean 117 Blood Pressure Mean [Right Arm] 125 Blood Pressure Position Pulse Oximetry 99 99 Oxygen Delivery Method Room Air Sepsis Recent Fever Within 48 Hours Sepsis New/Unexplained Change in Mental Status Sepsis Action Taken by Nursing 05/05/24 01:06 05/05/24 01:27 05/05/24 01:39 Temperature Temperature Source Pulse Rate 78 76 74 Pulse Rate [Apical] Pulse Rate from SpO2 Sensor 77 78 74 Pulse Rhythm [Apical] Respiratory Rate 14 13 13 Respiratory Effort / Characteristics Respiratory Depth Respiratory Pattern Blood Pressure Blood Pressure [Right Arm] Blood Pressure Mean Blood Pressure Mean [Right Arm] Blood Pressure Position Pulse Oximetry 98 99 99 Oxygen Delivery Method Sepsis Recent Fever Within 48 Hours Sepsis New/Unexplained Change in Mental Status Sepsis Action Taken by Nursing 05/05/24 01:42 05/05/24 01:48 05/05/24 03:06 Temperature Temperature Source Pulse Rate 73 81 Pulse Rate [Apical] Pulse Rate from SpO2 Sensor 75 84 Pulse Rhythm [Apical] Respiratory Rate 19 17 Respiratory Effort / Characteristics Respiratory Depth Respiratory Pattern Blood Pressure 154/97 H 137/92 Blood Pressure [Right Arm] Blood Pressure Mean 131 107 Blood Pressure Mean [Right Arm] Blood Pressure Position Pulse Oximetry 99 95 Oxygen Delivery Method Room Air Sepsis Recent Fever Within 48 Hours Sepsis New/Unexplained Change in Mental Status Sepsis Action Taken by Nursing 05/05/24 04:14 05/05/24 04:18 Temperature Temperature Source Pulse Rate 88 77 Pulse Rate [Apical] Pulse Rate from SpO2 Sensor Pulse Rhythm [Apical] Respiratory Rate 15 Respiratory Effort / Characteristics Respiratory Depth Respiratory Pattern Blood Pressure 133/79 Blood Pressure [Right Arm] Blood Pressure Mean 97 Blood Pressure Mean [Right Arm] Blood Pressure Position Pulse Oximetry 97 Oxygen Delivery Method Room Air Sepsis Recent Fever Within 48 Hours Sepsis New/Unexplained Change in Mental Status Sepsis Action Taken by Nursing Laboratory Data 05/05/24 00:39 05/05/24 00:39 Lab Results 05/05/24 05/05/24 Range/Units 00:39 03:39 WBC 23.40 H (4.8-10.8) K/ul RBC 4.97 (4.20-5.40) M/uL Hgb 15.6 (12.0-16.0) g/dl Hct 43.7 (37.0-47.0) % MCV 87.9 (80.0-100.0) fL MCH 31.4 (25.0-34.0) pg MCHC 35.7 (32.0-36.0) g/dL RDW Std Deviation 38.0 (36.4-46.3) fL RDW Coeff of Francine 11.9 (11.5-14.5) % Plt Count 289 (130-400) K/uL MPV 8.5 L (9.4-12.4) fL Immature Gran % (Auto) 0.3 % Neut % (Auto) 74.5 % Lymph % (Auto) 20.7 % Hudspeth % (Auto) 4.2 % Eos % (Auto) 0.0 % Baso % (Auto) 0.3 % Neut # (Auto) 17.44 H (1.40-6.50) K/uL Lymph # (Auto) 4.84 H (1.20-3.40) K/uL Hudspeth # (Auto) 0.98 H (0.11-0.59) K/uL Eos # (Auto) 0.00 (0.00-0.50) K/uL Baso # (Auto) 0.06 (0.00-0.20) K/uL Immature Gran # (Auto) 0.08 (0.01-0.20) K/uL Sodium 138 (136-145) mmol/L Potassium 3.9 (3.5-5.1) mmol/L Chloride 101 (98-107) mmol/L Carbon Dioxide 26 (21-32) mmol/L Anion Gap 11 (3-11) BUN 15 (6-23) mg/dl Creatinine 0.90 (0.6-1.2) mg/dl Est Cr Clr Drug Dosing Not Reportable eGFR 75.97 BUN/Creatinine Ratio 16.7 (10-20) Glucose 122 H (70-99(Fasting)) mg/dl Lactate 1.0 (0.4-2.0) mmol/L Calcium 9.7 (8.6-10.3) mg/dl Total Bilirubin 0.6 (0.2-1.0) mg/dl AST 22 (13-39) U/L ALT 17 (7-52) U/L Alkaline Phosphatase 59 (34-104) U/L Total Protein 7.1 (6.0-8.3) gm/dl Albumin 4.9 (3.4-5.0) gm/dl Globulin 2.2 L (2.5-4.0) gm/dl Albumin/Globulin Ratio 2.2 H (0.9-2) Lipase 13 (11-82) U/L Procalcitonin 0.10 (0-0.5) ng/ml Administered Medications Acetaminophen (Acetaminophen 325 Mg Tab) 650 mg PO Q4H PRN PRN Reason: pain/fever Stop: 06/04/24 05:43 Last Admin: 05/05/24 17:57 Dose: 650 mg Documented By: Admin: 05/05/24 08:37 Dose: 650 mg Documented By: TRACEY Hydrocodone Bitart/Acetaminophen (Hydrocodone/Acetamophen 5/325mg Tab) 1 tab PO Q6H PRN PRN Reason: Moderate Pain (Scale 4, 5, 6) Stop: 05/19/24 05:43 Last Admin: 05/05/24 12:18 Dose: 1 tab Documented By: Admin: 05/05/24 06:13 Dose: 1 tab Documented By: JASSI Bupropion HCl (Bupropion Xl 150 Mg Tabcr) [facility] [place] Stop: 06/04/24 08:59 Last Admin: 05/05/24 08:36 Dose: 150 mg Documented By: TRACEY Bupropion HCl (Bupropion Xl 300 Mg Tabcr) 300 mg [facility]AC[facility] [place] Stop: 06/04/24 08:59 Last Admin: 05/05/24 08:37 Dose: 300 mg Documented By: TRACEY Fluoxetine HCl (Fluoxetine Hcl 10 Mg Cap) 10 mg [facility] [place] Stop: 06/04/24 08:59 Last Admin: 05/05/24 08:36 Dose: 10 mg Documented By: TRACEY Hydromorphone HCl (Hydromorphone Inj 0.5 Mg/0.5 Ml Syr) 0.25 mg IV Q3H PRN PRN Reason: Severe Pain (Scale 7, 8, 9,10) Stop: 05/19/24 04:31 Last Admin: 05/05/24 18:32 Dose: 0.25 mg Documented By: Admin: 05/05/24 15:31 Dose: 0.25 mg Documented By: TRACEY Miscellaneous (Order Awaiting Action: Estradiol 0.01 % (0.1 Mg/Gram) Cream) 1 each N/A QS [facility] Stop: 06/04/24 07:59 Last Admin: 05/05/24 15:54 Dose: Not Given Documented By: Admin: 05/05/24 08:38 Dose: Not Given Documented By: TRACEY Discontinued Medications Pinon Syrup (Pinon Syrup 5 Ml Udp) 5 ml PO ONE STA Stop: 05/05/24 04:36 Last Admin: 05/05/24 04:48 Dose: 5 ml Documented By: BORA Pinon Syrup (Pinon Syrup 5 Ml Udp) 5 ml PO Q6H [facility] Stop: 05/15/24 11:59 Last Admin: 05/05/24 13:02 Dose: 5 ml Documented By: TRACEY Hydromorphone HCl (Hydromorphone Inj 0.5 Mg/0.5 Ml Syr) 0.5 mg IV NOW STA Stop: 05/05/24 00:49 Last Admin: 05/05/24 00:52 Dose: 0.5 mg Documented By: KATRINA Hydromorphone HCl (Hydromorphone Inj 0.5 Mg/0.5 Ml Syr) 0.5 mg IV NOW STA Stop: 05/05/24 03:36 Last Admin: 05/05/24 03:39 Dose: 0.5 mg Documented By: BORA Lactated Ringer's (Lr) 1,000 mls @ 999 mls/hr IV .Q1H1M ONE Stop: 05/05/24 05:31 Last Infusion: 05/05/24 05:58 Dose: Infused Documented By: Admin: 05/05/24 04:48 Dose: 999 mls/hr Documented By: BORA Ioversol (Optiray 320 100ml) 92 ml IV ONCE ONE Stop: 05/05/24 01:59 Last Admin: 05/05/24 01:58 Dose: 92 ml Documented By: ANGEL Ondansetron HCl (Ondansetron Inj 2 Mg/Ml 2 Ml Vial) 4 mg IV NOW STA Stop: 05/05/24 00:49 Last Admin: 05/05/24 00:52 Dose: 4 mg Documented By: KATRINA Vancomycin HCl (Vancomycin Hcl 125 Mg/2.5ml Soln) 125 mg PO ONE STA Stop: 05/05/24 04:36 Last Admin: 05/05/24 04:48 Dose: 125 mg Documented By: BORA Vancomycin HCl (Vancomycin Hcl 125 Mg/2.5ml Soln) 125 mg PO Q6H [facility] Stop: 05/15/24 11:59 Last Admin: 05/05/24 13:02 Dose: 125 mg Documented By: TRACEY Discharge Plan Visit Data Chief Complaint: Abdominal Pain Stated Complaint: SEVERE ABDOMINAL PAIN,DIARRHEA,BLOODY STOOL,VOMITI ED Provider: Hollie Downing Discharge Problem: Pancolitis, Leukocytosis, Acute GI bleeding Patient Disposition: Admitted As Inpatient Discharge Instructions Interventions: ED Discharge Assessment Last Done: 05/05/24 05:06
[2024-05-05 01:00] LABS: Basophils # (auto) 0.06 K/uL (0.00-0.20); Basophils % (auto) 0.3 %; Hematocrit (blood only) 43.7 % (37.0-47.0); Hemoglobin 15.6 g/dl (12.0-16.0); Immature Granulocytes # (auto) 0.08 K/uL (0.01-0.20); Immature Granulocytes % (auto) 0.3 %; Lymphocytes # (auto) 4.84 K/uL (1.20-3.40); Lymphocytes % (auto) 20.7 %; Mean Corpuscular Hemoglobin 31.4 pg (25.0-34.0); Mean Corpuscular Hgb Conc 35.7 g/dL (32.0-36.0); Mean Corpuscular Volume 87.9 fL (80.0-100.0); Mean Platelet Volume 8.5 fL (9.4-12.4); Monocytes # (auto) 0.98 K/uL (0.11-0.59); Monocytes % (auto) 4.2 %; Neutrophils # (auto) 17.44 K/uL (1.40-6.50); Neutrophils % (auto) 74.5 %; Platelet Count 289 K/uL (130-400); RDW Coefficient of Variation 11.9 % (11.5-14.5); Red Blood Count 4.97 M/uL (4.20-5.40)
[2024-05-05 01:16] LABS: Alanine Aminotransferase 17 U/L (7-52); Albumin Globulin Ratio 2.2 (0.9-2); Albumin Level 4.9 gm/dl (3.4-5.0); Alkaline Phosphatase 59 U/L (34-104); Anion Gap 11 (3-11); Aspartate Aminotransferase 22 U/L (13-39); BUN Creatinine Ratio 16.7 (10-20); Bilirubin,Total 0.6 mg/dl (0.2-1.0); Blood Urea Nitrogen 15 mg/dl (6-23); Calcium 9.7 mg/dl (8.6-10.3); Carbon Dioxide 26 mmol/L (21-32); Chloride 101 mmol/L (98-107); Globulin 2.2 gm/dl (2.5-4.0); Glucose 122 mg/dl (70-99(Fasting)); Lipase 13 U/L (11-82); Potassium 3.9 mmol/L (3.5-5.1); Sodium 138 mmol/L (136-145); Total Protein 7.1 gm/dl (6.0-8.3)
[2024-05-05] MEDS: OPTIRAY 320 100ml IV ONE (01:58)
--- NOTE | 2024-05-05 02:25 | XRay Report ---
EXAM: XR abdomen 2V w PA chest CLINICAL HISTORY: EVAL FOR FREE AIR JMF TECHNIQUE: X-ray images of the abdomen were obtained in supine and upright positions with PA chest view. COMPARISON: none. FINDINGS: Gas Pattern: Gas pattern within the abdomen is normal. No evidence of bowel obstruction or distention. Soft Tissues: Soft tissues of the abdomen appear normal without evidence of masses or calcifications. Liver, spleen, and kidneys are of normal size and position. IMPRESSION: Normal abdominal X-ray. No acute abnormalities identified. Electronically signed by Martha Suarez 05-05-2024 02:25 AM
--- NOTE | 2024-05-05 03:00 | CT Scan Report ---
EXAM: CT abd pelvis IV con only CLINICAL HISTORY: eval divericulitis 92 cc opti 320 TECHNIQUE: CT of the abdomen and pelvis was performed with 932ml of Opitray-320mg/ml contrast, with the following protocol: axial images with, and reconstructed coronal and sagittal images. One of the following dose reduction techniques was utilized for this exam: Automated exposure control, adjustment of the mA and/or kV according to patient size, and use of iterative reconstruction. COMPARISON: CT on 10/21/2021. FINDINGS: Abdomen: Liver: Normal in size, shape, and density. No focal lesions, cysts, or masses were identified. Hepatic vasculature and biliary ducts are unremarkable. Gallbladder and Biliary System: The gallbladder is normal in size and shape. No wall thickening, pericholecystic fluid, or gallstones were identified. The common bile duct is normal in caliber without dilation. Pancreas: Pancreatic head, body, and tail are visualized and appear normal in size and density. No pancreatic masses or calcifications were noted. The pancreatic duct is not dilated. Spleen: Normal in size, shape, and density. No splenic lesions or masses were identified. Kidneys and Adrenal Glands: Both kidneys are normal in size, shape, and position. Cortical thickness is within normal limits. No renal calculi or hydronephrosis. Adrenal glands are unremarkable with no evidence of masses or hyperplasia. Pelvis: Urinary Bladder: Normal in contour and wall thickness. No intraluminal lesions identified. Uterus: Normal in size and contour. No masses or abnormal thickening. Ovaries: Not well visualized but no gross abnormalities noted. Vagina: Normal in contour and wall thickness. Cervix: No evidence of mass or abnormal thickening. Peritoneal and Retroperitoneal Structures: No free fluid or abnormal fluid collections were identified within the abdomen or pelvis. No lymphadenopathy was noted. Bowel: Pancolon extensive wall edema especially the left colon with mild adjacent fat stranding. Extensive sigmoid diverticulosis. The visualized bowel loops are normal in caliber. No evidence of bowel obstruction. Bones and Soft Tissues: Pelvic bones and soft tissues are unremarkable. No fractures or abnormal masses were identified. IMPRESSION: 1. Pancolon extensive wall edema especially the left colon with mild adjacent fat stranding. could be due to IBD or other nonspecific infections. 2. Extensive sigmoid diverticulosis, stable in comparison with CT on 10/21/2021. Electronically signed by Martha Suarez 05-05-2024 02:59 AM
--- NOTE | 2024-05-05 04:34 | History & Physical Report ---
Date of Service May 05, 2024 Assessment & Plan (1) Pancolitis: (2) Hematochezia: (3) Frequent UTI: (4) Depression: (5) Osteoarthritis: Plan Pain colitis/hematochezia- Follow results of stool PCR and C. difficile studies Patient has been on multiple antibiotics within the past year Start vancomycin 125 mg p.o. 4 times daily, until results of studies return Full liquid diet as tolerated LR 1 L bolus Acetaminophen 650 mg by mouth every 6 hours as needed for mild pain or fever Continue hydrocodone/acetaminophen, 5/325, 1 every 6 hours as needed for moderate pain Dilaudid 0.25 mg IV every 3 hours as needed for severe pain, patient did receive some doses in the ED Depression- Continue bupropion, fluoxetine Hypertension-hold lisinopril History of Present Illness Chief Complaint: The patient presents to the emergency department with complaint of severe abdominal pain, that was initially accompanied by blood on the toilet paper, but reports her last 2 bowel movements today where complete blood. Primary Care Provider: Soheila Becerril DO The patient is a 53-year-old female with a past medical history including bacterial vaginosis, recurrent urinary tract infection, depression, status post left TKA, hematuria, hypertension and osteoarthritis. She presents to the emergency department with complaint of bright red blood per rectum, with severe abdominal pain.She has had at least 60 urinary tract infections within the past year, and most recently was on Macrobid begun on 04/07 through 04/14/2024. She w as also recently treated for bacterial vaginosis. She reports that her symptoms began around 4:00 PM, but does remember having store-bought ice cream at around 2:30 PM. She does have a history of diverticulosis, but has not had a history of diverticulitis. CT scan of abdomen and pelvis shows pain colitis with pain colon wall edema especially in the left, with differential including IBD versus infection Allergies Allergy/AdvReac Type Severity Reaction Status Date / Time adhesive Allergy Intermediate Skin Verified 05/05/24 01:44 irritation (? skin scars) Home Medications Medication Instructions Recorded Confirmed Type bupropion HCl 300 mg 24 hr tablet, 300 mg PO QAM 05/07/19 05/05/24 History extended release lisinopril 10 mg tablet 10 mg PO QAM 05/07/19 05/05/24 History fluoxetine 10 mg capsule 10 mg PO QAM 05/03/22 05/05/24 History cyclobenzaprine 10 mg tablet 10 mg PO TID PRN muscle spasm #15 02/25/24 05/05/24 Rx tabs valacyclovir 1 gram tablet 1,000 mg PO DIRECTED PRN HERPES 03/17/24 05/05/24 Rx (Valtrex) OUTBREAK #6 tabs estradiol 0.01% (0.1 mg/gram) 1 g vaginal 2XWK #42.5 grams 04/17/24 05/05/24 Rx vaginal cream bupropion HCl 150 mg 24 hr tablet, 150 mg PO QAM 05/05/24 05/05/24 History extended release hydrocodone 5 mg-acetaminophen 325 1 tab PO Q6 PRN Pain 05/05/24 05/05/24 History mg tablet Past Med/Surg History Problem List (Updated 05/05/24 @ 04:48 by Robe Ngo MD) Hematochezia Pancolitis Postmenopausal atrophic vaginitis Bacterial vaginosis Atrophic vaginitis (Acute) Frequent UTI (Chronic) UTI (urinary tract infection) (Acute) Macromastia Cervical radiculopathy (Acute) Routine gynecological examination Rotator cuff tendonitis Depression Osteoarthritis Encounter for pre-operative examination Osteoarthritis of left knee Degenerative cervical disc (Acute) S/P total knee arthroplasty Status post total knee replacement, left Genital labial ulcer Hematuria HTN (hypertension) Medical History Allergic rhinitis Arthritis Disc degeneration OCD (obsessive compulsive disorder) Diverticular disease Anxiety Asthma Hypertension Cervical stenosis of spinal canal Surgical History Family history of reaction to anesthesia Nausea and vomiting after administration of anesthetic agent History of left knee replacement S/P endometrial ablation Hx of hand surgery History of arthroscopy History of colonoscopy S/P cervical spinal fusion Family History Mother Family history of diabetes mellitus Father Family history of diabetes mellitus Grandfather (Maternal) Family history of diabetes mellitus Colorectal cancer Grandfather (Paternal) Family history of diabetes mellitus Grandmother (Paternal) Family history of diabetes mellitus Breast cancer Grandmother (Maternal) Family history of diabetes mellitus Denies family history of Ovarian cancer Social History Smoking Status: Former smoker Tobacco Type: Cigarettes Second Hand Exposure: No; Do You Dip or Chew Tobacco: No; Hx Alcohol Use: Yes Alcohol type: beer, wine and hard liquor Hx Substance Use: No Preferred Language: Barbadian Communication Ability: Effective Financial Service Representative Required: No Beliefs That Will Affect Care: None marital status: Current Living Situation: Spouse Feels Safe at Home: Yes Assistive Devices: Glasses Review of Systems Review of Systems: The patient denies chest pain, palpitations, shortness of breath, dyspnea on exertion, cough, lower extremity swelling, sore throat, fevers, chills, sweats, nausea, vomiting, blood in urine, dysuria, urinary frequency or urgency, lightheadedness, dizziness, headache, rash, abnormal bruising, imbalance, focal weakness, numbness or tingling in arms or legs, generalized arthralgias or myalgias, back or neck pain, or night sweats. The review of systems is otherwise negative other than for that already noted above, and at least 10 systems have been reviewed. Physical Exam Physical Exam: The patient is awake, alert and oriented 3, well developed and well nourished, normocephalic and atraumatic, lying in bed and in no acute distress. HEENT--PERRL, EOMI, mucous membranes and oropharynx mildly dry. Neck--supple. No JVD. No bruits. Thyroid normal, trachea midline, no adenopathy. Heart--normal S1 and S2. No murmurs, rubs or gallops. Lungs--clear bilaterally, no respiratory distress, no accessory muscle use. Abdomen--normal bowel sounds and soft. Nontender. Nondistended, no hernias or masses, no organomegaly. Extremities--no cyanosis or clubbing. No edema. Dermatologic--normal skin turgor, normal color, no abnormal lymph nodes, no rash. Neurologic--cranial nerves II through XII grossly intact. Rheumatologic--normal range of motion. Psychiatric--normal affect. Results & Data Results & Data Vital Signs (Past 12 Hours) Vital Signs Temp Pulse Pulse Resp BP BP Pulse Ox 05/05/24 04:14 88 05/05/24 03:06 81 17 137/92 95 05/05/24 01:48 154/97 H 05/05/24 01:42 73 19 99 05/05/24 01:39 74 13 99 05/05/24 01:27 76 13 99 05/05/24 01:06 78 14 98 05/05/24 01:00 150/95 H 05/05/24 00:54 90 99 05/05/24 00:53 98 H 28 H 174/101 H 99 05/05/24 00:48 90 23 100 05/05/24 00:47 174/101 H 05/05/24 00:28 36.6 C 103 H 18 143/92 H 98 O2 Del Method 05/05/24 04:14 05/05/24 03:06 Room Air 05/05/24 01:48 05/05/24 01:42 05/05/24 01:39 05/05/24 01:27 05/05/24 01:06 05/05/24 01:00 05/05/24 00:54 Room Air 05/05/24 00:53 05/05/24 00:48 05/05/24 00:47 05/05/24 00:28 Room Air Laboratory Results Laboratory Results WBC 23.40 K/ul (4.8-10.8) H 05/05/24 00:39 RBC 4.97 M/uL (4.20-5.40) 05/05/24 00:39 Hgb 15.6 g/dl (12.0-16.0) 05/05/24 00:39 Hct 43.7 % (37.0-47.0) 05/05/24 00:39 MCV 87.9 fL (80.0-100.0) 05/05/24 00:39 MCH 31.4 pg (25.0-34.0) 05/05/24 00:39 MCHC 35.7 g/dL (32.0-36.0) 05/05/24 00:39 RDW Std Deviation 38.0 fL (36.4-46.3) 05/05/24 00:39 RDW Coeff of Francine 11.9 % (11.5-14.5) 05/05/24 00:39 Plt Count 289 K/uL (130-400) 05/05/24 00:39 MPV 8.5 fL (9.4-12.4) L 05/05/24 00:39 Immature Gran % (Auto) 0.3 % 05/05/24 00:39 Neut % (Auto) 74.5 % 05/05/24 00:39 Lymph % (Auto) 20.7 % 05/05/24 00:39 Brewster % (Auto) 4.2 % 05/05/24 00:39 Eos % (Auto) 0.0 % 05/05/24 00:39 Baso % (Auto) 0.3 % 05/05/24 00:39 Neut # (Auto) 17.44 K/uL (1.40-6.50) H 05/05/24 00:39 Lymph # (Auto) 4.84 K/uL (1.20-3.40) H 05/05/24 00:39 Brewster # (Auto) 0.98 K/uL (0.11-0.59) H 05/05/24 00:39 Eos # (Auto) 0.00 K/uL (0.00-0.50) 05/05/24 00:39 Baso # (Auto) 0.06 K/uL (0.00-0.20) 05/05/24 00:39 Immature Gran # (Auto) 0.08 K/uL (0.01-0.20) 05/05/24 00:39 Sodium 138 mmol/L (136-145) 05/05/24 00:39 Potassium 3.9 mmol/L (3.5-5.1) 05/05/24 00:39 Chloride 101 mmol/L (98-107) 05/05/24 00:39 Carbon Dioxide 26 mmol/L (21-32) 05/05/24 00:39 Anion Gap 11 (3-11) 05/05/24 00:39 BUN 15 mg/dl (6-23) 05/05/24 00:39 Creatinine 0.90 mg/dl (0.6-1.2) 05/05/24 00:39 Est Cr Clr Drug Dosing Not Reportable 05/05/24 00:39 eGFR 75.97 05/05/24 00:39 BUN/Creatinine Ratio 16.7 (10-20) 05/05/24 00:39 Glucose 122 mg/dl (70-99(Fasting)) H 05/05/24 00:39 Lactate 1.0 mmol/L (0.4-2.0) 05/05/24 03:39 Calcium 9.7 mg/dl (8.6-10.3) 05/05/24 00:39 Total Bilirubin 0.6 mg/dl (0.2-1.0) 05/05/24 00:39 AST 22 U/L (13-39) 05/05/24 00:39 ALT 17 U/L (7-52) 05/05/24 00:39 Alkaline Phosphatase 59 U/L (34-104) 05/05/24 00:39 Total Protein 7.1 gm/dl (6.0-8.3) 05/05/24 00:39 Albumin 4.9 gm/dl (3.4-5.0) 05/05/24 00:39 Globulin 2.2 gm/dl (2.5-4.0) L 05/05/24 00:39 Albumin/Globulin Ratio 2.2 (0.9-2) H 05/05/24 00:39 Lipase 13 U/L (11-82) 05/05/24 00:39 Procalcitonin 0.10 ng/ml (0-0.5) 05/05/24 00:39 Impressions Chest/Abdomen X-ray 05/05/24 00:47 EXAM: XR abdomen 2V w PA chest CLINICAL HISTORY: EVAL FOR FREE AIR JMF TECHNIQUE: X-ray images of the abdomen were obtained in supine and upright positions with PA chest view. COMPARISON: none. FINDINGS: Gas Pattern: Gas pattern within the abdomen is normal. No evidence of bowel obstruction or distention. Soft Tissues: Soft tissues of the abdomen appear normal without evidence of masses or calcifications. Liver, spleen, and kidneys are of normal size and position. IMPRESSION: Normal abdominal X-ray. No acute abnormalities identified. Electronically signed by Martha Suarez 05-05-2024 02:25 AM Abdomen/Pelvis CT 05/05/24 01:42 EXAM: CT abd pelvis IV con only CLINICAL HISTORY: eval divericulitis 92 cc opti 320 TECHNIQUE: CT of the abdomen and pelvis was performed with 932ml of Opitray-320mg/ml contrast, with the following protocol: axial images with, and reconstructed coronal and sagittal images. One of the following dose reduction techniques was utilized for this exam: Automated exposure control, adjustment of the mA and/or kV according to patient size, and use of iterative reconstruction. COMPARISON: CT on 10/21/2021. FINDINGS: Abdomen: Liver: Normal in size, shape, and density. No focal lesions, cysts, or masses were identified. Hepatic vasculature and biliary ducts are unremarkable. Gallbladder and Biliary System: The gallbladder is normal in size and shape. No wall thickening, pericholecystic fluid, or gallstones were identified. The common bile duct is normal in caliber without dilation. Pancreas: Pancreatic head, body, and tail are visualized and appear normal in size and density. No pancreatic masses or calcifications were noted. The pancreatic duct is not dilated. Spleen: Normal in size, shape, and density. No splenic lesions or masses were identified. Kidneys and Adrenal Glands: Both kidneys are normal in size, shape, and position. Cortical thickness is within normal limits. No renal calculi or hydronephrosis. Adrenal glands are unremarkable with no evidence of masses or hyperplasia. Pelvis: Urinary Bladder: Normal in contour and wall thickness. No intraluminal lesions identified. Uterus: Normal in size and contour. No masses or abnormal thickening. Ovaries: Not well visualized but no gross abnormalities noted. Vagina: Normal in contour and wall thickness. Cervix: No evidence of mass or abnormal thickening. Peritoneal and Retroperitoneal Structures: No free fluid or abnormal fluid collections were identified within the abdomen or pelvis. No lymphadenopathy was noted. Bowel: Pancolon extensive wall edema especially the left colon with mild adjacent fat stranding. Extensive sigmoid diverticulosis. The visualized bowel loops are normal in caliber. No evidence of bowel obstruction. Bones and Soft Tissues: Pelvic bones and soft tissues are unremarkable. No fractures or abnormal masses were identified. IMPRESSION: 1. Pancolon extensive wall edema especially the left colon with mild adjacent fat stranding. could be due to IBD or other nonspecific infections. 2. Extensive sigmoid diverticulosis, stable in comparison with CT on 10/21/2021. Electronically signed by Martha Suarez 05-05-2024 02:59 AM Code Status & VTE Plan Code Status Full code VTE Prophylaxis Plan VTE Prophylaxis will be ordered: Yes PG Care Time/CCT Total # of Minutes Spent Total Time Spent with Patient: Total time spent is greater than 50% in coordination of care (as documented) at patient's floor/unit and/or counseling patient: Coding Level of Care Code 43712 INT INP/OBS CARE MIN Diagnoses Pancolitis K51.00 Hematochezia K92.1 Frequent UTI N39.0 Depression F32.9 Osteoarthritis M19.90
[2024-05-05] MEDS: VANCOMYCIN HCL 125 MG/2.5ML SOLN PO STA (04:48)
[2024-05-05] MEDS: LACTATED RINGER'S 1,000 ML IV ONE (04:48)
[2024-05-05] MEDS: CHERRY SYRUP 5 ML UDP PO STA (04:48)
[2024-05-05] MEDS ORDERED: CYCLOBENZAPRINE HCL 10 MG TAB PO PRN (05:44)
[2024-05-05] MEDS ORDERED: ONDANSETRON INJ 2 MG/ML 2 ML VIAL IV PRN (05:44)
[2024-05-05] MEDS: HYDROCODONE/ACETAMOPHEN 5/325MG TAB PO PRN (06:13)
--- NOTE | 2024-05-05 07:36 | Hospitalist Progress Note ---
Date of Service May 05, 2024 Assessment & Plan (1) Pancolitis: Plan: - IBD is on the differential right now - However, given that pt had a colonoscopy in 2017 with no evidence of of IBD, it is unlikely that the pt would develop pancolitis at 53 years old - Pt currently feeling better - Recommend a colonoscopy in 2-8 weeks to determine status of colon (2) Hematochezia: Plan: - Broad differential right now - Pt had 3 episodes of bloody diarrhea yesterday, however only one bowel movement today at 3:30pm - Pt feeling better today - WBCs 23.4 - Hgb 15.6 - Pain in RUQ and LLQ upon palpation - Potentially C. diff, especially with the recurrent use of antibiotics for UTI treatment. However the lack of bowel movement today makes that less likely - Potentially a food-borne illness like salmonella or enterohemorrhagic E. Coli. Pt has a splinted left hand, so it is possible she was unable to adequately wash her hands after handling raw food and bacteria could have entered her body after touching her mouth. - Potentially a viral enteritis that caused exacerbation of hemorrhoids. However, that would usually present with non-bloody diarrhea followed by bloody diarrhea - Potentially diverticulitis, however the large amount of blood in stool makes that less likely - Follow results of stool PCR and C. difficile studies Plan Pancolitis/hematochezia- Follow results of stool PCR and C. difficile studies Patient has been on multiple antibiotics within the past year Continue vancomycin 125 mg p.o. 4 times daily, until results of studies return Full liquid diet as tolerated LR 1 L bolus Acetaminophen 650 mg by mouth every 6 hours as needed for mild pain or fever Continue hydrocodone/acetaminophen, 5/325, 1 every 6 hours as needed for moderate pain Dilaudid 0.25 mg IV every 3 hours as needed for severe pain, patient did receive some doses in the ED Depression- Continue bupropion, fluoxetine Hypertension-hold lisinopril Admission and Anticipated Discharge Date Admission Date: May 05, 2024 Supervising Physician Co-Signing Physician Notes I personally examined the patient and verified all sykes points of history and exam, discussed case, and agree with decision making with Dr Núñez and Jack Marroquin MS2 still feels fairly lousy. Stool specimen just sent. Diarrhea has slowed down considerably but was still bloody. Noted diarrhea profusely for about an hour before transitioning to ability at home. Vitals noted, in general she is awake and alert appears fatigued no distress. HEENT normocephalic atraumatic mucous membranes moist. Abdomen soft mild diffuse tenderness no guarding or rebound bloody diarrhea/colitis w sepsis present on admission - after i had seen pt, stool came back (+) for EPEC. suspect blood more likley secondary to irritation (?hemorroids, other) than primary due to toxin effect. supportive care, outpt colo. otherwise as above Subjective The patient is a 53-year-old female with a past medical history including bacterial vaginosis, recurrent urinary tract infection, depression, status post left TKA, hematuria, hypertension and osteoarthritis. She presents to the emergency department with complaint of bright red blood per rectum, with severe abdominal pain. She has had at least 60 urinary tract infections within the past year, and most recently was on Macrobid begun on 04/07 through 04/14/2024. She was also recently treated for bacterial vaginosis. She reports that her symptoms began yesterday around 4:00 PM. She felt sweaty, nauseous and vomited, had sharp constant pain in her LLQ, and had multiple episodes of diarrhea and then 3 episodes bloody diarrhea. She did not have any fever. There has been no recent travel and no new foods. The last thing she ate was store-bought ice cream at around 2:30 PM. She has had previous [address] scan of abdomen and pelvis shows pancolitis with pancolon wall edema especially in the left, with differential including IBD versus infection. She has no family history of IBD. Today the pain is feeling better, although she attributes that to the Percocet. She had one bowel movement today around 3:30pm that is being sent for testing. She had no bowel movement today prior to this. She does not currently have nausea or vomiting. He abd pain gets worse whenever she brings her knees to her chest. Review of Systems Constitutional: No fevers, chills, night sweats, change in appetite or weight Respiratory: No SOB, no coughing or wheezing Cardiovascular: Additional Comments: No chest pain, no palpitations, no swelling Gastrointestinal: As per HPI Physical Exam Constitutional: WD/WN, vitals as above comfortable Respiratory: normal respiratory effort, lungs clear to auscultation Cardiovascular: RRR, no murmur, no edema Vessels: posterior tibial pulses present and radial pulses present Gastrointestinal (Abdomen): Inspection/Auscultation: normal bowel sounds Pain and guarding upon palpation to the LLQ and RUQ. Results & Data Results & Data Vital Signs (Past 12 Hours) Vital Signs Temp Pulse Pulse Pulse Resp BP BP 05/05/24 05:45 36.6 C 73 16 152/87 H 05/05/24 04:33 76 15 132/78 05/05/24 04:18 77 15 133/79 05/05/24 04:14 88 05/05/24 03:06 81 17 137/92 05/05/24 01:48 154/97 H 05/05/24 01:42 73 19 05/05/24 01:39 74 13 05/05/24 01:27 76 13 05/05/24 01:06 78 14 05/05/24 01:00 150/95 H 05/05/24 00:54 90 05/05/24 00:53 98 H 28 H 174/101 H 05/05/24 00:48 90 23 05/05/24 00:47 174/101 H 05/05/24 00:28 36.6 C 103 H 18 143/92 H Pulse Ox O2 Del Method 05/05/24 05:45 98 Room Air 05/05/24 04:33 95 Room Air 05/05/24 04:18 97 Room Air 05/05/24 04:14 05/05/24 03:06 95 Room Air 05/05/24 01:48 05/05/24 01:42 99 05/05/24 01:39 99 05/05/24 01:27 99 05/05/24 01:06 98 05/05/24 01:00 05/05/24 00:54 99 Room Air 05/05/24 00:53 99 05/05/24 00:48 100 05/05/24 00:47 05/05/24 00:28 98 Room Air Laboratory Results 05/05/24 05/05/24 05/05/24 Range/Units 06:35 03:39 00:39 WBC 23.40 H (4.8-10.8) K/ul RBC 4.97 (4.20-5.40) M/uL Hgb 15.6 (12.0-16.0) g/dl Hct 43.7 (37.0-47.0) % MCV 87.9 (80.0-100.0) fL MCH 31.4 (25.0-34.0) pg MCHC 35.7 (32.0-36.0) g/dL RDW Std Deviation 38.0 (36.4-46.3) fL RDW Coeff of Francine 11.9 (11.5-14.5) % Plt Count 289 (130-400) K/uL MPV 8.5 L (9.4-12.4) fL Immature Gran % (Auto) 0.3 % Neut % (Auto) 74.5 % Lymph % (Auto) 20.7 % [place] % (Auto) 4.2 % Eos % (Auto) 0.0 % Baso % (Auto) 0.3 % Neut # (Auto) 17.44 H (1.40-6.50) K/uL Lymph # (Auto) 4.84 H (1.20-3.40) K/uL [place] # (Auto) 0.98 H (0.11-0.59) K/uL Eos # (Auto) 0.00 (0.00-0.50) K/uL Baso # (Auto) 0.06 (0.00-0.20) K/uL Immature Gran # (Auto) 0.08 (0.01-0.20) K/uL Sodium 138 (136-145) mmol/L Potassium 3.9 (3.5-5.1) mmol/L Chloride 101 (98-107) mmol/L Carbon Dioxide 26 (21-32) mmol/L Anion Gap 11 (3-11) BUN 15 (6-23) mg/dl Creatinine 0.90 (0.6-1.2) mg/dl Est Cr Clr Drug Dosing Not Reportable eGFR 75.97 BUN/Creatinine Ratio 16.7 (10-20) Glucose 122 H (70-99(Fasting)) mg/dl Lactate 1.0 (0.4-2.0) mmol/L Calcium 9.7 (8.6-10.3) mg/dl Total Bilirubin 0.6 (0.2-1.0) mg/dl AST 22 (13-39) U/L ALT 17 (7-52) U/L Alkaline Phosphatase 59 (34-104) U/L Total Protein 7.1 (6.0-8.3) gm/dl Albumin 4.9 (3.4-5.0) gm/dl Globulin 2.2 L (2.5-4.0) gm/dl Albumin/Globulin Ratio 2.2 H (0.9-2) Lipase 13 (11-82) U/L Procalcitonin 0.10 (0-0.5) ng/ml Urine Color Yellow Urine Appearance Clear (Clear) Urine pH 5.5 (4.5-7.5) Ur Specific Pickrell > 1.045 H (1.000-1.030) Urine Protein Negative (Negative) Urine Glucose (UA) Negative (Negative) Urine Ketones Negative (Negative) Urine Blood Trace H (Negative) Urine Nitrite Negative (Negative) Urine Bilirubin Negative (Negative) Urine Urobilinogen Negative (Negative) Ur Leukocyte Esterase Negative (Negative) Urine WBC (Auto) 0-5 (0-5) /hpf Urine RBC (Auto) 3-5 H (0-2) /hpf U Hyaline Cast (Auto) 0-2 (0-2) /lpf U Epithel Cells (Auto) 0-2 (0-2) /hpf Urine Bacteria (Auto) None Seen (None Seen) Diagnostic Findings Last Colonoscopy (2016) - Found diverticulosis in sigmoid colon Chest/Abdomen X-ray 05/05/24 00:47 EXAM: XR abdomen 2V w PA chest CLINICAL HISTORY: EVAL FOR FREE AIR JMF TECHNIQUE: X-ray images of the abdomen were obtained in supine and upright positions with PA chest view. COMPARISON: none. FINDINGS: Gas Pattern: Gas pattern within the abdomen is normal. No evidence of bowel obstruction or distention. Soft Tissues: Soft tissues of the abdomen appear normal without evidence of masses or calcifications. Liver, spleen, and kidneys are of normal size and position. IMPRESSION: Normal abdominal X-ray. No acute abnormalities identified. Electronically signed by Martha Suarez 05-05-2024 02:25 AM Abdomen/Pelvis CT 05/05/24 01:42 EXAM: CT abd pelvis IV con only CLINICAL HISTORY: eval divericulitis 92 cc opti 320 TECHNIQUE: CT of the abdomen and pelvis was performed with 932ml of Opitray-320mg/ml contrast, with the following protocol: axial images with, and reconstructed coronal and sagittal images. One of the following dose reduction techniques was utilized for this exam: Automated exposure control, adjustment of the mA and/or kV according to patient size, and use of iterative reconstruction. COMPARISON: CT on 10/21/2021. FINDINGS: Abdomen: Liver: Normal in size, shape, and density. No focal lesions, cysts, or masses were identified. Hepatic vasculature and biliary ducts are unremarkable. Gallbladder and Biliary System: The gallbladder is normal in size and shape. No wall thickening, pericholecystic fluid, or gallstones were identified. The common bile duct is normal in caliber without dilation. Pancreas: Pancreatic head, body, and tail are visualized and appear normal in size and density. No pancreatic masses or calcifications were noted. The pancreatic duct is not dilated. Spleen: Normal in size, shape, and density. No splenic lesions or masses were identified. Kidneys and Adrenal Glands: Both kidneys are normal in size, shape, and position. Cortical thickness is within normal limits. No renal calculi or hydronephrosis. Adrenal glands are unremarkable with no evidence of masses or hyperplasia. Pelvis: Urinary Bladder: Normal in contour and wall thickness. No intraluminal lesions identified. Uterus: Normal in size and contour. No masses or abnormal thickening. Ovaries: Not well visualized but no gross abnormalities noted. Vagina: Normal in contour and wall thickness. Cervix: No evidence of mass or abnormal thickening. Peritoneal and Retroperitoneal Structures: No free fluid or abnormal fluid collections were identified within the abdomen or pelvis. No lymphadenopathy was noted. Bowel: Pancolon extensive wall edema especially the left colon with mild adjacent fat stranding. Extensive sigmoid diverticulosis. The visualized bowel loops are normal in caliber. No evidence of bowel obstruction. Bones and Soft Tissues: Pelvic bones and soft tissues are unremarkable. No fractures or abnormal masses were identified. IMPRESSION: 1. Pancolon extensive wall edema especially the left colon with mild adjacent fat stranding. could be due to IBD or other nonspecific infections. 2. Extensive sigmoid diverticulosis, stable in comparison with CT on 10/21/2021. Electronically signed by Martha Suarez 05-05-2024 02:59 AM
[2024-05-05 07:44] LABS: Appearance Urine Clear (Clear); Bacteria Urine Automated None Seen (None Seen); Bilirubin Urine Negative (Negative); Blood Urine Trace (Negative); Cast Urine Automated 0-2 /lpf (0-2); Color Urine Yellow; Epithelial Cell Urine Auto 0-2 /hpf (0-2); Glucose Urine UA Negative (Negative); Ketones Urine Negative (Negative); Leukocyte Esterase Urine Negative (Negative); Nitrite Urine Negative (Negative); Protein Urine Negative (Negative); Specific Gravity Urine > 1.045 (1.000-1.030); Urobilinogen Urine Negative (Negative); WBC Urine Automated 0-5 /hpf (0-5); pH Urine 5.5 (4.5-7.5)
[2024-05-05] MEDS: buPROPion XL 150 MG TABCR PO SCH (08:36)
[2024-05-05] MEDS: FLUoxetine HCL 10 MG CAP PO SCH (08:36)
[2024-05-05] MEDS: buPROPion XL 300 MG TABCR PO SCH (08:37)
[2024-05-05] MEDS: ACETAMINOPHEN 325 MG TAB PO PRN (08:37)
[2024-05-05] MEDS: VANCOMYCIN HCL 125 MG/2.5ML SOLN PO SCH (13:02)
[2024-05-05] MEDS: CHERRY SYRUP 5 ML UDP PO SCH (13:02)
[2024-05-05] MEDS: HYDROmorphone INJ 0.5 MG/0.5 ML SYR IV PRN (15:31)
[2024-05-05 16:39] LABS: Adenovirus F 40/41 PCR Not Detected (NotDetected); Astrovirus PCR Not Detected (NotDetected); Campylobacter PCR Not Detected (NotDetected); Cryptosporidium PCR Not Detected (NotDetected); Cyclospora cayetanensis PCR Not Detected (NotDetected); Entamoeba histolytica PCR Not Detected (NotDetected); Enteroaggregative E.coli(EAEC) Not Detected (NotDetected); Enterotoxigenic E.coli (ETEC) Not Detected (NotDetected); Giardia lamblia PCR Not Detected (NotDetected); Norovirus GI/GII PCR Not Detected (NotDetected); Plesiomonas shigelloides PCR Not Detected (NotDetected); Rotavirus A PCR Not Detected (NotDetected); Salmonella PCR Not Detected (NotDetected); Sapovirus PCR Not Detected (NotDetected); Shiga-like Toxin E.coli (STEC) Not Detected (NotDetected); Shigella/Enteroinvasive E.coli Not Detected (NotDetected); Vibrio cholerae PCR Not Detected (NotDetected); Vibrio species PCR Not Detected (NotDetected); Yersinia enterocolitica PCR Not Detected (NotDetected)
[2024-05-05 16:59] LABS: Enteropathogenic E.coli (EPEC) DETECTED (NotDetected)
--- NOTE | 2024-05-05 19:03 | Billing Data ---
Date of Service May 05, 2024 Coding Level of Care Code 86916 SUB INP/OBS CARE
--- NOTE | 2024-05-05 19:04 | Billing Data ---
Date of Service May 05, 2024 Coding Level of Care Code 46499 SUB INP/OBS CARE
[2024-05-06] MEDS: HYDROmorphone INJ 0.5 MG/0.5 ML SYR IV STA (01:08)
[2024-05-06 09:11] LABS: BUN Creatinine Ratio 11.8 (10-20); Creatinine Clr Calc Pharmacy 66.8 ml/min; Potassium 3.6 mmol/L (3.5-5.1)
--- NOTE | 2024-05-06 09:30 | Hospitalist Progress Note ---
Date of Service May 06, 2024 Assessment & Plan (1) Acute GI bleeding: Plan: - Pt has had bloody diarrhea since Sunday - Pt has had 2 bloody bowel movements today - Positive for EPEC - External rectal exam showed a small rectal fissure and an external hemorrhoid - Likely the initial diarrhea irritated the rectum, causing the fissure and hemorrhoid to cause the bloody diarrhea rather than a bleed from within the colon - Current management includes supportive care, fluids, electrolytes - To exclude other sources of GI bleed, reccomend a colonoscopy 2-8 weeks after discharge (2) Leukocytosis: Plan: - WBCs dropped to 20.3 from 23.4 - Positive stool test for EPEC - EPEC infection seems to be the cause of leukocytosis - As supportive care continues, WBCs are expected to continue dropping into the normal range Plan Hematochezia- Full liquid diet as tolerated Acetaminophen 650 mg by mouth every 6 hours as needed for mild pain or fever Continue hydrocodone/acetaminophen, 5/325, 1 every 6 hours as needed for moderate pain Dilaudid 0.25 mg IV every 3 hours as needed for severe pain, patient did receive some doses in the ED Depression- Continue bupropion, fluoxetine Admission and Anticipated Discharge Date Admission Date: May 05, 2024 Supervising Physician Co-Signing Physician Notes I personally examined the patient and verified all sykes points of history and exam, discussed case, and agree with decision making with Dr Núñez and Jack Marroquin MS2 still is abdominal painmaybe a little bit better. Still having bloody diarrhea but less often. No fevers chills or sweats. Vitals noted, in general she is awake and alert pleasant fatigued but no distress. HEENT normocephalic atraumatic mucous membranes moist. Breathing unlabored no accessory muscle use good effort. Skin without rashes pallor or icterus. External rectal exam done with patient's permission, Dr. Luo as female supervisor gear repair, and medical student Edil Marroquin present with patient's permissionI personally examined her external rectum and did not see any active bleeding, at about 12:00 there was a very small denuded area of mucosa, but did not seem to be enough to account for bleeding, at approximately 6:00 there was either a fairly large skin tag or more consistent with a somewhat deflated external hemorrhoiddespite traction and it in different directions I could not see any mucosal bleeding, but it was reasonably large. I also did not see any bleeding anterior to the rectum. Patient tolerated exam well and discussed findings immediately after. Hematochezia/sepsis present on admissionEPEC relatedsuspect foodborne from probably undercooked chicken versus other; does not appear to be immunocompromised (reviewed urinary tract infections and and she has been on antibiotics about 5 times this year, but that also included an episode of BV, not cystitis; she does not get frequent sinus infections or pneumonias, and has been following actively for the recurrent urinary tract infections with urologyand has no other apparent recurrent infections). Overall improving, white count only marginally improvedbut given that symptoms are improving and she is nontoxicno clear indication for antibiotic at this time. External rectal exam makes me suspicious that either that small tear, or more likely the more anterior hemorrhoid are the culprit for the bleedingand certainly despite seeing a lot of blood in the toilet bowl she has been completely hemodynamically stable and her hemoglobin is quite stablesuggesting there is not nearly as much blood loss as it appears. Given that the hemorrhoid would be a more likely culprit for the bleeding than the small tear, we will utilize rectal hydrocortisone to try to calm things down. Discussed with patient still will warrant a colonoscopy in the near but not emergent future given that its impossible to rule out a concomitant upstream site of bleeding. Continue to follow into tomorrowas long as bleeding continues to improve/slow down, as long as hemodynamics stay stable, and as long as white count shows ongoing improvementhopefully home tomorrow. otherwise as above Subjective The patient is a 53-year-old female with a past medical history including bacterial vaginosis, recurrent urinary tract infection, depression, status post left TKA, hematuria, hypertension and osteoarthritis. She presents to the emergency department with complaint of bright red blood per rectum, with severe abdominal pain. She recently had a UTI and began Macrobid on 04/07 through 04/14/2024. She was also recently treated for bacterial vaginosis. She reports that her symptoms began Sunday around 4:00 PM. She felt sweaty, nauseous and vomited, had sharp constant pain in her LLQ, and had multiple episodes of diarrhea and then 3 episodes bloody diarrhea. She did not have any fever. There has been no recent travel and no new foods. The last thing she ate was store- bought ice cream at around 2:30 PM. She has had previous [address] scan of abdomen and pelvis shows pancolitis with pancolon wall edema especially in the left. Pt said that she is not doing any better today regarding pain. She said that her pain is still about a 9/10 without painkillers, however it is about a 2/10 with pain killers. Pt had difficulty sleeping last night due to the pain. She asked me not to palpate her abdomen because she was afraid it would hurt too much. Yesterday, she had 3 bloody bowel movements and today she had another bloody bowel movement. No nausea, vomiting, heart palpitations, SOB, chest pain, edema, abdominal distention, rash, fever, or chills. The stool test came back positive for EPEC and we discussed management for that, including fluid intake and sup portive care. We also discussed the need for a rectal exam to determine the source of the bleeding. We also discussed her left wrist, which she has an ortho appt today to take out her stitches. She said that she would reschedule that ankur. However if the appt was difficult to reschedule in a timely manner, a case checker would assist in expediting this. Review of Systems Constitutional: No fevers or chills. She has had decreased appetite. Respiratory: No SOB, no wheezing Cardiovascular: Additional Comments: No palpitations, no chest pain, no edema Gastrointestinal: as per Subjective / HPI Integumentary: No skin changes Physical Exam Constitutional: WD/WN, vitals as above Respiratory: normal respiratory effort, lungs clear to auscultation Cardiovascular: RRR, no murmur, no edema Gastrointestinal (Abdomen): Normal bowel sounds, palpation declined by pt due to fear of intense abdominal pain Genitourinary: Recatal exam was performed. External rectum and perineum was visualized. A small rectal fissure at the 12'oclock position was visualized. A small hemorrhoid was visualized at the 6'oclock position. Neither of these lesions was actively bleeding. Results & Data Results & Data Vital Signs (Past 12 Hours) Vital Signs Temp Pulse Resp BP Pulse Ox O2 Del Method 05/06/24 07:31 36.8 C 83 18 142/91 H 98 Room Air 05/06/24 01:11 76 157/97 H Laboratory Results Laboratory Results - last 24 hr 05/05/24 05/06/24 Unknown 08:15 WBC 20.31 H RBC 4.32 Hgb 13.4 Hct 39.6 MCV 91.7 MCH 31.0 MCHC 33.8 RDW Std Deviation 40.4 RDW Coeff of Francine 11.9 Plt Count 243 MPV 8.8 L Sodium 138 Potassium 3.6 Chloride 101 Carbon Dioxide 29 Anion Gap 8 BUN 9 Creatinine 0.76 Est Cr Clr Drug Dosing 66.8 eGFR 93.06 BUN/Creatinine Ratio 11.8 Glucose 81 Calcium 9.0 Stl C. cayetanensis PCR Not Detected Stool Rotavirus A PCR Not Detected Stl Adenov F 40/41 PCR Not Detected Stool Astrovirus (PCR) Not Detected Stool Campylobacter PCR Not Detected Stl C. diff Tox B Gene Negative Cdiff Gene Stool Cryptosporidium PCR Not Detected Stl E.coli Shiga Tox PCR Not Detected Stl Enterotoxigenic E PCR Not Detected Stool EPEC (PCR) DETECTED A* Stool EAEC (PCR) Not Detected Stl E. histolytica PCR Not Detected Stool Giardia Lamblia PCR Not Detected Stool Salmonella PCR Not Detected Stool Sapovirus (PCR) Not Detected Stl P. shigelloides PCR Not Detected Stl Shigella/EIEC PCR Not Detected St Y.enterocolitica PCR Not Detected Stool Vibrio (PCR) Not Detected Stl Vibrio cholerae PCR Not Detected Stl Norovirus GI/GII PCR Not Detected Diagnostic Findings Chest/Abdomen X-ray 05/05/24 00:47 EXAM: XR abdomen 2V w PA chest CLINICAL HISTORY: EVAL FOR FREE AIR F TECHNIQUE: X-ray images of the abdomen were obtained in supine and upright positions with PA chest view. COMPARISON: none. FINDINGS: Gas Pattern: Gas pattern within the abdomen is normal. No evidence of bowel obstruction or distention. Soft Tissues: Soft tissues of the abdomen appear normal without evidence of masses or calcifications. Liver, spleen, and kidneys are of normal size and position. IMPRESSION: Normal abdominal X-ray. No acute abnormalities identified. Electronically signed by Martha Suarez 05-05-2024 02:25 AM Abdomen/Pelvis CT 05/05/24 01:42 EXAM: CT abd pelvis IV con only CLINICAL HISTORY: eval divericulitis 92 cc opti 320 TECHNIQUE: CT of the abdomen and pelvis was performed with 932ml of Opitray-320mg/ml contrast, with the following protocol: axial images with, and reconstructed coronal and sagittal images. One of the following dose reduction techniques was utilized for this exam: Automated exposure control, adjustment of the mA and/or kV according to patient size, and use of iterative reconstruction. COMPARISON: CT on 10/21/2021. FINDINGS: Abdomen: Liver: Normal in size, shape, and density. No focal lesions, cysts, or masses were identified. Hepatic vasculature and biliary ducts are unremarkable. Gallbladder and Biliary System: The gallbladder is normal in size and shape. No wall thickening, pericholecystic fluid, or gallstones were identified. The common bile duct is normal in caliber without dilation. Pancreas: Pancreatic head, body, and tail are visualized and appear normal in size and density. No pancreatic masses or calcifications were noted. The pancreatic duct is not dilated. Spleen: Normal in size, shape, and density. No splenic lesions or masses were identified. Kidneys and Adrenal Glands: Both kidneys are normal in size, shape, and position. Cortical thickness is within normal limits. No renal calculi or hydronephrosis. Adrenal glands are unremarkable with no evidence of masses or hyperplasia. Pelvis: Urinary Bladder: Normal in contour and wall thickness. No intraluminal lesions identified. Uterus: Normal in size and contour. No masses or abnormal thickening. Ovaries: Not well visualized but no gross abnormalities noted. Vagina: Normal in contour and wall thickness. Cervix: No evidence of mass or abnormal thickening. Peritoneal and Retroperitoneal Structures: No free fluid or abnormal fluid collections were identified within the abdomen or pelvis. No lymphadenopathy was noted. Bowel: Pancolon extensive wall edema especially the left colon with mild adjacent fat stranding. Extensive sigmoid diverticulosis. The visualized bowel loops are normal in caliber. No evidence of bowel obstruction. Bones and Soft Tissues: Pelvic bones and soft tissues are unremarkable. No fractures or abnormal masses were identified. IMPRESSION: 1. Pancolon extensive wall edema especially the left colon with mild adjacent fat stranding. could be due to IBD or other nonspecific infections. 2. Extensive sigmoid diverticulosis, stable in comparison with CT on 10/21/2021. Electronically signed by Martha Suarez 05-05-2024 02:59 AM
[2024-05-06 09:31] LABS: Hematocrit (blood only) 39.6 % (37.0-47.0); Hemoglobin 13.4 g/dl (12.0-16.0); Mean Corpuscular Hgb Conc 33.8 g/dL (32.0-36.0); Mean Corpuscular Volume 91.7 fL (80.0-100.0); Mean Platelet Volume 8.8 fL (9.4-12.4); Platelet Count 243 K/uL (130-400); RDW Coefficient of Variation 11.9 % (11.5-14.5); RDW Standard Deviation 40.4 fL (36.4-46.3); Red Blood Count 4.32 M/uL (4.20-5.40); White Blood Count 20.31 K/ul (4.8-10.8)
[2024-05-06 10:16] LABS: ALC (manual) 2.03 K/uL (1.2-3.4); ANC (manual) 16.04 K/uL (1.4-6.5); Eosinophils % (manual) 1 %; Lymphocytes # (manual) 2.03 K/uL (1.2-3.4); Lymphocytes % (manual) 10 %; Monocytes # (manual) 2.03 K/uL (0.11-0.59); Monocytes % (manual) 10 %; Neutrophils # (manual) 16.04 K/uL (1.40-6.50); Neutrophils % (manual) 79 %; RBC Morphology Unremarkable
[2024-05-06] MEDS ORDERED: HYDROCORTISONE HC 2.5% CRM 30GM TUBE EXT PRN (11:56)
[2024-05-06] MEDS: HYDROCORTISONE HC 2.5% CRM 30GM TUBE EXT SCH (12:35)
--- NOTE | 2024-05-06 13:12 | Billing Data ---
Date of Service May 06, 2024 Coding Level of Care Code 60752 SUB INP/OBS CARE
[2024-05-06 20:01] VITALS: RESP 16; TEMP 97.9
[2024-05-07 06:59] VITALS: BP 149/96; PULSE 83; O2SAT 97
--- NOTE | 2024-05-07 07:34 | Hospitalist Progress Note ---
Date of Service May 07, 2024 Assessment & Plan (1) Acute GI bleeding: Plan: - Pt has had bloody diarrhea since Sunday - Positive for EPEC - External rectal exam showed a small rectal fissure and an external hemorrhoid - Since starting hydrocortisone cream, pt has had 1 minimally bloody diarrhea yesterday evening - Continue hydrocortisone cream for 7 days - Pt seems healthy enough to discharge - To exclude other sources of GI bleed, recommend a colonoscopy 2-8 weeks after discharge - Return to hospital if rectal bleeding returns or worsens (2) Leukocytosis: Plan: - WBCs dropped to 15.81 from 20.3 - Positive stool test for EPEC - EPEC infection seems to be the cause of leukocytosis - As supportive care continues, WBCs are expected to continue dropping into the normal range - Recommend follow up outpatient CBC to ensure resolution of leukocytosis Plan Hematochezia- Full liquid diet as tolerated Acetaminophen 650 mg by mouth every 6 hours as needed for mild pain or fever Depression- Continue bupropion, fluoxetine Admission and Anticipated Discharge Date Admission Date: May 05, 2024 Subjective The patient is a 53-year-old female with a past medical history including bacterial vaginosis, recurrent urinary tract infection, depression, status post left TKA, hematuria, hypertension and osteoarthritis. She presents to the emergency department with complaint of bright red blood per rectum, with severe abdominal pain. She recently had a UTI and began Macrobid on 04/07 through 04/14/2024. She was also recently treated for bacterial vaginosis. She reports that her symptoms began Sunday around 4:00 PM. She felt sweaty, nauseous and vomited, had sharp constant pain in her LLQ, and had multiple episodes of diarrhea and then 3 episodes bloody diarrhea. She did not have any fever. There has been no recent travel and no new foods. The last thing she ate was store- bought ice cream at around 2:30 PM. She has had previous [address] scan of abdomen and pelvis shows pancolitis with pancolon wall edema especially in the left. The stool test came back positive for EPEC Pt said that she is doing much better today. Yesterday, she stopped using opiates and switched to tylenol, which controlled the pain well. She was able to sleep through the night without pain. Today, she did not take any Tylenol and she had 0/10 pain while laying in bed. No nausea, vomiting, fevers. She did have a bloody bowel movement last night, however the blood was signfigantly less present. She discussed being ready for discharge. Due to her WBCs still being elevated, we would like to continue tracking that outpatient. We recommend getting a CBC in a week after discharge to ensure that the leukocytosis has resolved. We also discussed tracking the bloody diarrhea. While the blood in the bowel movements has not resolved, it has improved greatly with the use of hydrocortisone cream. We counseled her to continue using the cream at home for a 7 days and to return to the hospital if the bleeding returned or worsened. Review of Systems Constitutional: No fevers, chills, diaphoresis Respiratory: No SOB, no wheeze Cardiovascular: Additional Comments: No chest pain, no palpitations Gastrointestinal: as per Subjective / HPI Physical Exam Constitutional: WD/WN, vitals as above Respiratory: normal respiratory effort, lungs clear to auscultation Cardiovascular: RRR, no murmur, no edema Gastrointestinal (Abdomen): Inspection/Auscultation: abdomen normal to inspection and normal bowel sounds 2/10 pain upon palpation of LLQ. No guar ding. Results & Data Results & Data Vital Signs (Past 12 Hours) Vital Signs Temp Pulse Resp BP Pulse Ox O2 Del Method 05/07/24 06:59 36.6 C 83 16 149/96 H 97 Room Air 05/06/24 19:59 36.6 C 82 16 152/90 H 100 Room Air Laboratory Results Laboratory Results - last 24 hr 05/07/24 08:37 WBC 15.81 H RBC 4.03 L Hgb 13.0 Hct 36.1 L MCV 89.6 MCH 32.3 MCHC 36.0 RDW Std Deviation 37.6 RDW Coeff of Francine 11.6 Plt Count 234 MPV 8.8 L Immature Gran % (Auto) 0.4 Neut % (Auto) 57.2 Lymph % (Auto) 34.7 [place] % (Auto) 5.8 Eos % (Auto) 1.6 Baso % (Auto) 0.3 Neut # (Auto) 9.06 H Lymph # (Auto) 5.48 H [place] # (Auto) 0.91 H Eos # (Auto) 0.26 Baso # (Auto) 0.04 Immature Gran # (Auto) 0.06
[2024-05-07 09:15] LABS: Hematocrit (blood only) 36.1 % (37.0-47.0); Mean Corpuscular Hemoglobin 32.3 pg (25.0-34.0); Mean Corpuscular Volume 89.6 fL (80.0-100.0); Mean Platelet Volume 8.8 fL (9.4-12.4); Platelet Count 234 K/uL (130-400); RDW Coefficient of Variation 11.6 % (11.5-14.5); RDW Standard Deviation 37.6 fL (36.4-46.3); Red Blood Count 4.03 M/uL (4.20-5.40); White Blood Count 15.81 K/ul (4.8-10.8)
[2024-05-07 09:40] LABS: Basophils # (auto) 0.04 K/uL (0.00-0.20); Basophils % (auto) 0.3 %; Eosinophils # (auto) 0.26 K/uL (0.00-0.50); Eosinophils % (auto) 1.6 %; Immature Granulocytes # (auto) 0.06 K/uL (0.01-0.20); Immature Granulocytes % (auto) 0.4 %; Lymphocytes # (auto) 5.48 K/uL (1.20-3.40); Lymphocytes % (auto) 34.7 %; Monocytes # (auto) 0.91 K/uL (0.11-0.59); Monocytes % (auto) 5.8 %; Neutrophils # (auto) 9.06 K/uL (1.40-6.50); Neutrophils % (auto) 57.2 %
--- NOTE | 2024-05-07 11:41 | Discharge Summary ---
Date of Service May 07, 2024 Admission HPI Per Admitting Provider The patient is a 53-year-old female with a past medical history including bacterial vaginosis, recurrent urinary tract infection, depression, status post left TKA, hematuria, hypertension and osteoarthritis. She presents to the emergency department with complaint of bright red blood per rectum, with severe abdominal pain.She has had at least 60 urinary tract infections within the past year, and most recently was on Macrobid begun on 04/07 through 04/14/2024. She was also recently treated for bacterial vaginosis. She reports that her symptoms began around 4:00 PM, but does remember having store-bought ice cream at around 2:30 PM. She does have a history of diverticulosis, but has not had a history of diverticulitis. CT scan of abdomen and pelvis shows pain colitis with pain colon wall edema especially in the left, with differential including IBD versus infection Admission Exam Per Admitting Provider The patient is awake, alert and oriented 3, well developed and well nourished, normocephalic and atraumatic, lying in bed and in no acute distress. HEENT--PERRL, EOMI, mucous membranes and oropharynx mildly dry. Neck--supple. No JVD. No bruits. Thyroid normal, trachea midline, no adenopathy. Heart--normal S1 and S2. No murmurs, rubs or gallops. Lungs--clear bilaterally, no respiratory distress, no accessory muscle use. Abdomen--normal bowel sounds and soft. Nontender. Nondistended, no hernias or masses, no organomegaly. Extremities--no cyanosis or clubbing. No edema. Dermatologic--normal skin turgor, normal color, no abnormal lymph nodes, no rash. Neurologic--cranial nerves II through XII grossly intact. Rheumatologic--normal range of motion. Psychiatric--normal affect. Principal Diagnosis EPEC infection, pancolitis Discharge Exam Constitutional WD/WN, vitals as above Respiratory normal respiratory effort, lungs clear to auscultation Cardiovascular RRR, no murmur, no edema Extremities: normal capillary refill; no calf tenderness Gastrointestinal (Abdomen) Inspection/Auscultation: abdomen normal to inspection and + hypoactive bowel sounds; abdomen not distended Percussion/Palpation: + abdomen tender (mild tenderness predominantly in LLQ of abdomen) Psychiatric A+Ox3, euthymic affect Discharge Data Allergies Allergy/AdvReac Type Severity Reaction Status Date / Time adhesive Allergy Intermediate Skin Verified 05/05/24 01:44 irritation (? skin scars) Consultations 05/05/24 03:33 ED Decision to Admit Stat Ordered Studies 05/05/24 01:42 CT Abd and Pelvis [CT abd pelvis IV con only] Stat Hospital Course (1) Acute GI bleeding: - Pt has had bloody diarrhea since Sunday - Pt continues to have bloody bowel movements - Positive for EPEC - External rectal exam showed a small rectal fissure and an external hemorrhoid - Likely the initial diarrhea irritated the rectum, causing the fissure and hemorrhoid to cause the bloody diarrhea rather than a bleed from within the colon - Current management includes supportive care, fluids, electrolytes - To exclude other sources of GI bleed, recommend a colonoscopy 2-8 weeks after discharge (2) Leukocytosis: - WBCs dropped to 15.8 <-- 20.3 <-- 23.4, improving - Positive stool test for EPEC - EPEC infection seems to be the cause of leukocytosis - As supportive care continues, WBCs are expected to continue dropping into the normal range (3) Enteropathogenic Escherichia coli infection: Plan Hematochezia- Full liquid diet as tolerated, transition to solid food 1-2 days after discharge Acetaminophen 650 mg by mouth every 6 hours as needed for mild pain or fever No need for any stronger pain meds upon discharge Depression- Continue bupropion, fluoxetine Total Time Total Time Spent Total Time Spent (In Minutes): <30 Discharge Plan Discharge Items Patient Disposition: Home - Self-Care Reason For Visit: PANCOLITIS, HEMATOCHEZIA Discharge Diagnosis: EPEC (enteropathogenic E. coli) infection, pancolitis Activity: Resume your previous activity Non-emergency contact: Primary Care Provider and Vp Patient Call non-emergency contact if: your symptoms worsen and your pain is not controlled Follow-up/Referrals: Soheila Morgan DO [Primary Care Provider] - 05/12/24 11:05 am Diet: Regular and Full liquid Diet Comment: Full liquids to regular diets in 1-2 days Addtl Attending Provider Instructions: You were admitted to the hospital for abdominal pain along with bloody stools. You were treated with change of diet (no oral diet w/ gradual escalation to clear liquids, full liquids, etc), IV fluids, pain medication (IV Dilaudid). A discharge summary will be sent to your primary care physician to ensure continuity of care. Please bring this discharge summary with you to your next office appointment so that your provider can review it at that time. Follow-up appointments: We have requested a follow-up appointment with your primary care physician within one week of discharge. Please call their office if you do not hear from them. Keep all your follow-up appointments as already scheduled. If you cannot make an appointment, notify your provider. Medications: Your medication list has been reviewed and reconciled upon discharge to ensure accuracy and continuity of care. An updated list of all your medications is included with your hospital discharge paperwork. Please review this list closely, and make note of any changes. Take your medications as instructed; do not skip a dose of your medicines. Make sure all of your doctors know every medicine you are taking (including [id number] medicines, vitamins, and supplements). Call your primary care provider before taking any new medicines (including [id number] medicines, vitamins, and supplements), because some of these may interact with your current medications, or may make your symptoms worse. Tell your primary care provider if you cannot afford your medications. CONTACT YOUR PRIMARY CARE PROVIDER if you experience any of the following: fevers, chills worsening abdominal pain, bloody stools Difficulty following your treatment plan, or difficulty taking medications CALL 911 OR GO TO THE EMERGENCY DEPARTMENT if you experience any of the following: Sudden, severe abdominal pain or nausea/vomiting Severe chest pain, or chest pain that radiates (moves) to your jaw or arm Sudden, severe shortness of breath or difficulty breathing Thank you for allowing us to participate in your care Pending Studies at Discharge: No Stand-Alone Forms: [facility], Smoking Cessation Medications and DC Order Prescriptions: Continued valacyclovir [Valtrex] 1 gram tablet 1,000 mg PO DIRECTED PRN (Reason: HERPES OUTBREAK ) Qty: 6 1RF Patient Comments: NOT CURRENTLY ON fluoxetine 10 mg capsule 10 mg PO QAM estradiol 0.01 % (0.1 mg/gram) cream 1 g vaginal 2XWK Qty: 42.5 2RF lisinopril 10 mg tablet 10 mg PO QAM bupropion HCl 300 mg tablet extended release 24 hr 300 mg PO QAM cyclobenzaprine 10 mg tablet 10 mg PO TID PRN (Reason: muscle spasm) Qty: 15 0RF bupropion HCl 150 mg tablet extended release 24 hr 150 mg PO QAM hydrocodone-acetaminophen 5-325 mg tablet 1 tab PO Q6 PRN (Reason: Pain) Discharge Orders: Discharge Order (Routine); Ordered 05/07/24 Ordered By: Medardo Ambrose/Other Patient Handouts: Understanding Anal Fissures, Treating Hemorrhoids: Self-Care, Understanding Hemorrhoids, Understanding Colitis Admission Data Admit Date/Time: 05/05/24 04:33 Attending Provider: Jesus Manuel Finney Admit Provider: Robe Ngo Primary Care Provider: Soheila Morgan Other Providers: Robe Ngo Other Interventions: Discharge Summary Assessment (RN) Last Done: 05/07/24 10:46 Supervising Physician Co-Signing Physician Notes I personally examined the patient and verified all sykes points of history and exam, discussed case, and agree with decision making with Dr Núñez and Jack Marroquin MS2 Feeling better. Bleeding slowing down. Bowel movements slowing down. Belly pain improved. Would very much like to get home. Vitals noted, in general she is awake and alert pleasant no distress. HEENT normocephalic atraumatic mucous membranes moist. Breathing unlabored no accessory muscle use good effort. Skin without rashes pallor or icterus. Neuro without focal deficits Hematochezia/sepsis present on admissionEPEC relatedsuspect foodborne from probably undercooked chicken versus other; does not appear to be immunocompromised (reviewed urinary tract infections and and she has been on antibiotics about 5 times this year, but that also included an episode of BV, not cystitis; she does not get frequent sinus infections or pneumonias, and has been following actively for the recurrent urinary tract infections with urologyand has no other apparent recurrent infections). Overall improving, white count only marginally improvedbut given that symptoms are improving and she is nontoxicno clear indication for antibiotic at this time. External rectal exam makes me suspicious that either that small tear, or more likely the more anterior hemorrhoid are the culprit for the bleedingand certainly despite seeing a lot of blood in the toilet bowl she has been completely hemodynamically stable and her hemoglobin is quite stablesuggesting there is not nearly as much blood loss as it appears. Given that the hemorrhoid would be a more likely culprit for the bleeding than the small tear, we will utilize rectal hydrocortisone to try to calm things down. Discussed with patient still will warrant a colonoscopy in the near but not emergent future given that its impossible to rule out a concomitant upstream site of bleeding. safe/stable for home, outpatient follow-up, CBC next week. outpatient colo once able to be scheduled (~1-3 months reasonable time frame) otherwise as above
--- NOTE | 2024-05-07 17:12 | Billing Data ---
Date of Service May 07, 2024 Coding Level of Care Code 15732 IN/OBS DISCH 30 MIN/LESS
== END 2024-05-07 11:10 | disposition home or self-care (01) | DRG 872 ==
LOC: ED 00:23 → 3N 04:33 → SUATTDRO 04:33 → INTOOBSV 04:33 → 3N 05:06